=== PATIENT | female | born 1940 | race Caucasian/White ===

== ENCOUNTER 2020-08-01 15:13 | Emergency (ER) | payer MEDICARE, OTHER, BC ==
[~2020-08-01] VITALS: Ht 167.6 cm; Wt 76.5 kg
[2020-08-01] MEDS ORDERED: ATEN50TA2 (15:25)
[2020-08-01] MEDS ORDERED: ONDA-83 (15:25)
[2020-08-01] MEDS ORDERED: LOPI600T PO (15:25)
[2020-08-01] MEDS ORDERED: SIMV40TA20 (15:25)
[2020-08-01] MEDS ORDERED: SERT50TA29 PO (15:25)
[2020-08-01] MEDS ORDERED: ALPR0.25 (15:25)
[2020-08-01] MEDS ORDERED: DONE10TA90 (15:25)
[2020-08-01] MEDS ORDERED: SYNT100T (15:25)
[2020-08-01] MEDS ORDERED: METF-838 (15:25)
[2020-08-01] MEDS ORDERED: FERR325T18 (15:25)
[2020-08-01] MEDS ORDERED: NS 500 ML IV ONE (15:45)
[2020-08-01] MEDS ORDERED: ONDANSETRON 4MG/2ML VIAL IV ONE (15:45)
[2020-08-01 16:00] LABS: BASO % 0.5 % (0.0-1.0); EOS # 0.1 10^3/uL (0.0-0.5); HEMATOCRIT 35.6 % (36.0-47.0); HEMOGLOBIN 11.3 g/dl (12.0-15.5); LYMPH # 1.3 10^3/uL (1.5-5.0); LYMPH % 15.4 % (24.0-44.0); MEAN CORPUSCULAR HGB CONC 31.7 g/dl (32.0-36.5); MEAN CORPUSCULAR VOLUME 78.8 fl (80.0-96.0); MONO # 0.5 10^3/uL (0.0-0.8); MONO % 5.5 % (2.0-8.0); NEUTROPHILS # 6.3 10^3/uL (1.5-8.5); NEUTROPHILS % 77.2 % (36.0-66.0); PLATELET COUNT, AUTOMATED 163 10^3/uL (150-450); RED BLOOD COUNT 4.52 10^6/uL (4.00-5.40); WHITE BLOOD COUNT 8.1 10^3/uL (4.0-10.0)
[2020-08-01 16:27] LABS: ALBUMIN 3.7 GM/DL (3.2-5.2); ALT/SGPT 13 U/L (12-78); BILIRUBIN,DIRECT 0.1 MG/DL (0.0-0.2); BILIRUBIN,TOTAL 0.6 MG/DL (0.2-1.0); BLOOD UREA NITROGEN 13 MG/DL (7-18); CALCIUM LEVEL 9.2 MG/DL (8.8-10.2); CARBON DIOXIDE LEVEL 26 MEQ/L (21-32); CHLORIDE LEVEL 107 MEQ/L (98-107); GLOMERULAR FILTRATION RATE > 60.0 (>39); GLUCOSE, FASTING 119 MG/DL (70-100); LIPASE 366 U/L (73-393); POTASSIUM SERUM 3.8 MEQ/L (3.5-5.1); SODIUM LEVEL 140 MEQ/L (136-145); TOTAL PROTEIN 6.7 GM/DL (6.4-8.2)
[2020-08-01] MEDS ORDERED: ISOVUE-370 76% 100ML VIAL As Ordered ONE (16:35)
--- NOTE | 2020-08-01 17:09 | REP ---
INDICATION: nausea/vomiting for weeks. COMPARISON: None. TECHNIQUE: Helical scanning was acquired and 4 mm axial images are re-formatted. Coronal and sagittal MPR images were generated and reviewed. The contrast enhancement dose is 100 mL of intravenous Isovue 370. FINDINGS: Preliminary digital campus recruiting intern radiograph is unremarkable. Normal bowel gas pattern is seen. On axial CT images, the lung bases are free of infiltrate. No pleural effusion is seen. There is mild splenomegaly. Spleen measures 14.5 cm in greatest transverse dimension. There is mild diffuse fatty infiltration of the liver. The liver is mildly enlarged as well with an 18.4 cm craniocaudal span in the midclavicular line. No focal liver lesion is seen. There are calcified gallstones filling most of the lumen of the gallbladder. The gallbladder is not dilated. No biliary ductal dilation is observed. No abnormality is noted in the pancreas. Normal adrenal glands are seen. The abdominal aorta is normal in caliber but extensively calcified. Kidneys enhance symmetrically. No renal mass, cyst, or calculus is observed. Small and large intestinal bowel loops are normal in the upper abdomen. No abdominal wall defect is seen. Urinary bladder is unremarkable. No uterine abnormality is observed. The rectum is mildly distended with gas at the time of the CT acquisition. There is mild left colonic diverticulosis without CT evidence of diverticulitis. The appendix is difficult to identify and appears to be tiny, and without in the inflammatory changes. No bony destructive lesion. IMPRESSION: Mild hepatosplenomegaly. Fatty infiltration of the liver mild in degree. Cholelithiasis. No biliary ductal dilation. Mild diverticulosis of the left colon. No acute abdominal or pelvic abnormality seen.. <Electronically signed by Sai Velasco > 08/01/20 [id number]
[2020-08-01] MEDS ORDERED: REGL5TAB2 PO (18:25)
[2020-08-01 18:42] VITALS: BP 160/65
--- NOTE | 2020-08-02 14:08 | ED PDOC ---
Post-Departure Follow-Up radiology report faxed to Eva Zepeda MD Aug 02, 2020 14:08
== END 2020-08-01 18:45 | disposition home or self-care (01) ==
LOC: M ED 15:13
DX: K80.20 Calculus of gallbladder without cholecystitis without obstruction (principal); R11.2 Nausea with vomiting, unspecified; R16.2 Hepatomegaly with splenomegaly, not elsewhere classified; K76.0 Fatty (change of) liver, not elsewhere classified; K57.30 Diverticulosis of large intestine without perforation or abscess without bleeding; E11.9 Type 2 diabetes mellitus without complications; I10 Essential (primary) hypertension; E78.5 Hyperlipidemia, unspecified; E03.9 Hypothyroidism, unspecified; F17.200 Nicotine dependence, unspecified, uncomplicated; Z79.890 Hormone replacement therapy; Z79.899 Other long term (current) drug therapy
CPT/HCPCS: 36415; 74177; 80048; 80076; 81001; 83690; 85025; 93041; 96361; 96374; 99285; J2405; Q9967

== ENCOUNTER 2020-10-10 15:11 | Inpatient (IN) | payer MEDICARE, BC, OTHER ==
[~2020-10-10] VITALS: Ht 165.1 cm; Wt 76.8 kg
[~2020-10-10 15:11] MED LIST: ALPR0.25; ATEN50TA2 PO; DONE10TA90 PO; FERR325T18; LOPI600T PO; METF-838 PO; ONDA-83; PREVAGEN PO; REGL5TAB2 PO; SERT50TA29 PO; SIMV40TA20 PO; SYNT100T PO; ZOLO100T PO
[2020-10-10] MEDS ORDERED: DEXTROSE 50% 50 ML SYRINGE IV PRN (17:00)
[2020-10-10] MEDS ORDERED: GLUCOSE 4GM CHEW TABLET PO PRN (17:00)
[2020-10-10] MEDS ORDERED: BISACODYL 10 MG SUPP PR PRN (17:00)
[2020-10-10] MEDS ORDERED: GLUCAGON INJ 1MG VIAL SC PRN (17:00)
[2020-10-10 18:54] VITALS: BP 132/60
[2020-10-10 20:00] VITALS: BP 128/60
[2020-10-10] MEDS: HumaLOG INSULIN (NovoLOG) PER UNIT SC SCH (20:15)
[2020-10-10] MEDS: DONEPEZIL 5 MG TAB PO SCH (20:18)
[2020-10-10] MEDS: SENNA 8.6 MG TAB (SENOKOT) PO SCH (20:18)
[2020-10-10] MEDS: SIMVASTATIN 20 MG TAB PO SCH (20:19)
[2020-10-10] MEDS: DOCUSATE SODIUM 100MG CAPSULE PO SCH (20:19)
[2020-10-10] MEDS: ACETAMINOPHEN 500 MG TAB PO SCH (20:19)
[2020-10-10] MEDS: REMEDY PHYTOPLEX Z-GUARD PASTE 113GM TUBE (FROM STOREROOM PRODUCT) TOP SCH (20:27)
--- NOTE | 2020-10-10 20:59 | HPEPDOC ---
Practice Or Student Teacher Note DATE OF ADMISSION: 10-10-20 DATE OF SERVICE: 10-11-20 TIME OF ADMISSION: Please refer to physician's admission order. SOURCE OF ADMISSION INFORMATION: [facility] record and patient CHIEF COMPLAINT: right pelvic fracture HISTORY OF PRESENT ILLNESS: 79F pmh dementia, DM. HTN, HLD, cholelithiasis, hypothyroidism, who presented to [facility] ED on 10-07-20 with left wrist and right hip pain following a mechanical fall. Imaging revealed "Subtle nondisplaced somewhat comminuted fracture involving the right pubic tubercle/inferior pubic ramus and very subtle incomplete buckle fracture of the mid right inferior pubic ramus" and wrist imaging did not reveal fracture. She was evaluated by orthopedics diagnosed with a wrist contusion an provided with a splint. She had weakness, pain, and notable anemia with difficulty completing her ADLs and ambulating and deemed medically appropriate for discharge to ARU on 10-10-20. REVIEW OF SYSTEMS: The following is a completed review of systems and has been reviewed. Review of systems otherwise unremarkable. PAIN: Patient self reports left wrist pain EYES: [No recent vision changes EARS, NOSE, & THROAT: No throat pain, or dysphagia, or rhinorrhea CARDIOVASCULAR: Denies chest pain or palpitations PULMONARY: Denies shortness of breath GASTROINTESTINAL: Denies constipation/diarrhea GENITOURINARY: denies dysuria MUSCULOSKELETAL: left wrist pain and right pelvic fracture NEUROLOGICAL:+left hand paresthesias HEMATOLOGICAL: denies easy bruising SKIN: denies rash PSYCHIATRIC: Unremarkable All other review of systems found to be negative. PAST MEDICAL HISTORY: as per [facility] PAST SURGICAL HISTORY: tubal ligation ALLERGIES: Please see below. MEDICATIONS: Please see below. FAMILY HISTORY:tubal ligation SOCIAL HISTORY: +smoker, no etoh/illicit drugs DIET: consistent carb PHYSICAL EXAMINATION: VITAL SIGNS: Please see below. GENERAL: Pleasant and cooperative. No acute distress. HEENT: PERRL. Extraocular movements intact. Clear conjunctiva CARDIOVASCULAR: Regular rate and rhythm. No murmurs, rubs, or gallops LUNGS: Clear to auscultation bilaterally. No wheezes. No rhonchi ABDOMEN: Soft, nontender, nondistended. Positive bowel sounds. Normal active bowel sounds NEUROLOGICAL: Alert and oriented times three. Cranial nerves II through XII grossly intact. Sensation grossly intact in all 4limbs, except decreased to light touch left hand D1-D4 EXTREMITIES: 5\\5 strength right l upper extremity 5/5 left elbow flexion/extension, 4/5 wrsit extension/supervisor phosphatic fertilizer/finger abduction (secondary to pain). 4+\\5 strength right lower extremity. left wrist- +Tinel's of median nerve, +TTP 1st CMC joint with mild swelling and ecchymosis of thenar eminence -radial pulse strong, fingers warm and well perfused LABORATORY DATA: Please see below. IMAGING:Imaging documentation personally reviewed by record FUNCTIONAL STATUS: Premorbid: Independent with all activities of daily life as well as mobility On Admission: Min assist for bed mobility, functional transfers, dressing, toileting, bathing, ambulation GOALS: Mod-I bed mobility, functional transfers, dressing, toileting, bathing, ambulation ASSESSMENT:79-year-old F with past medical history of DM, hypothyroidism who presents status post fall with multiple right pubic rami fracture and left wrist contusion PLAN: 1. REhab- PT/OT advance mobility and ADLs, strengthen/stretch/maintain ROM all 4l imbs, balance training 2. Ortho s/p fall with multiple right pubic rami fractures, WBAT -patient also with left wrist contusion with paresthesias consistent with median nerve distribution, concern for possible scaphoid fracture, will order MRI- c/u splint and use of platform walker to offload wrist 3. CArdaic- hx of HTn c/u BP Meds -HLD- c/u statin and Lopid 4. Resp- monitor for infection 5. Neuro- hx of dementia on donepeazil 6. Endo- hx of hypothryoidism c/u synthroid 7. Psych- anxiety/depression c/u zoloft 8. Heme- anemia 9. Pain- tylenol and tramadol prn- lidoderm patch to wrist 10. GI ppx- protonix 11. DVT ppx- lovenox 12. DIspo- tbd POST ADMISSION PHYSICIAN EVALUATION: Medical and functional status: Description of medical status, medical assessment: As above. Rehabilitation diagnosis and current and prior cold morbid medical conditions as above. Risk of complications and plans to mitigate them as above. Description of functional status current status is as above. Prior status as above. Status compared to preadmission: There are no clinically significant differences between the patient's current status and the information described on the preadmission screening document. Treatment plan anticipated: Treatment plan is as described above. Required disciplines including physical therapy, occupational therapy, others as noted above Intensity of services: 3 hours a day, 6 days a week. Special considerations: There are no specific special or safety considerations that would likely preclude immediate implementation of an intensive rehabilitation program or subsequently influence the plan of care ATTESTATION: Considering all the information above, it is my best judgment that this patient requires intensive rehabilitation therapy as described above and an inpatient hospital environment due to the complexity of nursing, medical, and rehabilitation needs required by the patient. Furthermore, this patient can reasonably be expected to participate in an benefit from an inpatient rehabilitation stay with an interdisciplinary team approach to the delivery of rehabilitation care under the direction and supervision of rehabilitation physician PROGNOSIS: Excellent ESTIMATED LENGTH OF STAY:10-12 days. PROJECTED DISCHARGE DESTINATION: [Home with family support and any durable med ical equipment required to increase functional safety and mobility]. TIME SPENT COUNSELING AND COORDINATING INITIAL CARE: Greater than minutes. Vital Signs Vital Sign - Last 24 Hours 10/10/20 18:54 Temp 97.3 Pulse 62 Resp 20 B/P (MAP) 132/60 (84) Pulse Ox 95 O2 Delivery Room Air Laboratory Data Labs 24H Laboratory Tests 2 10/10/20 19:49: Bedside Glucose (Misc Panel) 181H FSBS Laboratory Tests Test 10/10/20 19:49 Range/Units Bedside Glucose (Misc Panel) 181 83-110 MG/DL Home Medications Scheduled Atenolol (Atenolol) 50 Mg Tablet, 50 MG PO DAILY, (Reported) Donepezil HCl (Donepezil HCl) 10 Mg Tablet, 10 MG PO BID, (Reported) Gemfibrozil (Lopid) 600 Mg Tablet, 600 MG PO BID, (Reported) Levothyroxine Sodium (Synthroid) 100 Mcg Tablet, 100 MCG PO DAILY, (Reported) Metformin HCl (Metformin HCl ER) 500 Mg Tab.er.24h, 500 MG PO BID, (Reported) Sertraline Hcl (Zoloft) 100 Mg Tablet, 100 MG PO DAILY, (Reported) Simvastatin (Simvastatin) 40 Mg Tablet, 60 MG PO QHS, (Reported) [Prevagen] , 1 TAB PO DAILY, (Reported) Allergies Coded Allergies: No Known Allergies (Unverified , 08/01/20) A-FIB/CHADSVASC A-FIB History Current/History of A-Fib/PAF?: No Current PO Anticoag Therapy: No CHRIS CARPENTER MD Oct 10, 2020 20:59
[2020-10-10] MEDS ORDERED: ACETAMINOPHEN 500 MG TAB PO SCH (21:00)
[2020-10-11 05:30] VITALS: BP 163/74
[2020-10-11] MEDS: LEVOTHYROXINE 100MCG TABLET (0.1MG) PO SCH (06:05)
[2020-10-11 06:52] LABS: BASO # 0.1 10^3/uL (0.0-0.2); BASO % 0.6 % (0.0-1.0); EOS # 0.1 10^3/uL (0.0-0.5); EOS % 1.2 % (0.0-3.0); HEMOGLOBIN 10.4 g/dl (12.0-15.5); LYMPH # 1.4 10^3/uL (1.5-5.0); LYMPH % 16.6 % (24.0-44.0); MEAN CORPUSCULAR HEMOGLOBIN 25.1 pg (27.0-33.0); MEAN CORPUSCULAR HGB CONC 31.5 g/dl (32.0-36.5); MEAN CORPUSCULAR VOLUME 79.7 fl (80.0-96.0); MONO # 0.5 10^3/uL (0.0-0.8); NEUTROPHILS # 6.1 10^3/uL (1.5-8.5); PLATELET COUNT, AUTOMATED 131 10^3/uL (150-450); RED BLOOD COUNT 4.14 10^6/uL (4.00-5.40); WHITE BLOOD COUNT 8.1 10^3/uL (4.0-10.0)
[2020-10-11 07:23] LABS: ALBUMIN 3.1 GM/DL (3.2-5.2); ALT/SGPT 10 U/L (12-78); BILIRUBIN,TOTAL 0.5 MG/DL (0.2-1.0); BLOOD UREA NITROGEN 16 MG/DL (7-18); CALCIUM LEVEL 8.7 MG/DL (8.8-10.2); CARBON DIOXIDE LEVEL 26 MEQ/L (21-32); CHLORIDE LEVEL 108 MEQ/L (98-107); CREATININE FOR GFR 0.58 MG/DL (0.55-1.30); GLOMERULAR FILTRATION RATE > 60.0 (>39); GLUCOSE, FASTING 162 MG/DL (70-100); POTASSIUM SERUM 4.1 MEQ/L (3.5-5.1); SODIUM LEVEL 141 MEQ/L (136-145); TOTAL PROTEIN 6.4 GM/DL (6.4-8.2)
[2020-10-11] MEDS: traMADol 50 MG TAB PO PRN ×3 (07:39→16:05)
[2020-10-11] MEDS: ACETAMINOPHEN 500 MG TAB PO SCH ×3 (07:39→20:40)
[2020-10-11] MEDS: DONEPEZIL 5 MG TAB PO SCH ×2 (07:40→20:41)
[2020-10-11] MEDS: ENOXAPARIN 40MG/0.4ML SYRINGE (J1650 PER 10MG) SC SCH (07:40)
[2020-10-11] MEDS: atenoloL 50 MG TAB PO SCH (07:40)
[2020-10-11] MEDS: SERTRALINE 100 MG TAB PO SCH (07:40)
[2020-10-11] MEDS: DOCUSATE SODIUM 100MG CAPSULE PO SCH ×2 (07:40→20:41)
[2020-10-11] MEDS: PANTOPRAZOLE 40MG TAB (PROTONIX) PO SCH (07:40)
[2020-10-11] MEDS: HumaLOG INSULIN (NovoLOG) PER UNIT SC SCH ×4 (07:41→20:39)
[2020-10-11] MEDS: REMEDY PHYTOPLEX Z-GUARD PASTE 113GM TUBE (FROM STOREROOM PRODUCT) TOP SCH ×3 (07:41→20:41)
[2020-10-11] MEDS ORDERED: LIDOCAINE 5% (LIDODERM) PATCH TD SCH (09:00)
[2020-10-11 14:00] VITALS: BP 133/60
[2020-10-11 20:00] VITALS: BP 115/57
[2020-10-11] MEDS: SIMVASTATIN 20 MG TAB PO SCH (20:41)
[2020-10-11] MEDS: SENNA 8.6 MG TAB (SENOKOT) PO SCH (20:41)
[2020-10-11] MEDS ORDERED: **NOTE PATIENT COMMENT** MISC XX SCH (21:00)
--- NOTE | 2020-10-11 23:38 | REPVR ---
PROCEDURE INFORMATION: Exam: MR Left Upper Extremity Joint Without Contrast; Wrist Exam date and time: 10/11/2020 10:40 PM Age: 79 years old Clinical indication: Other: Pain; Additional info: No cotnrast- R/O scaphiod fracture TECHNIQUE: Imaging protocol: MR of the Left upper extremity without contrast. Exam focused on the wrist. COMPARISON: CR Wrist, complete 10/07/2020 12:47 PM Study limitations: Some sequences are nondiagnostic secondary to excessive motion artifact. FINDINGS: OSSEOUS There is an acute, complete, essentially nondisplaced, transverse fracture extending obliquely through the mid capitate body. No other acute osseous injury is seen. There are marrow signal changes at the base of the 1st metacarpal and cystic changes within the trapezium and base of the 1st metacarpal, findings consistent with osteoarthritis and reactive marrow signal changes. The scaphoid is intact. The distal radius is intact. LIGAMENTS Evaluation of wrist ligaments is limited by motion artifact. No obvious scapholunate or lunotriquetral intraosseous ligament tear is seen. TFCC The triangular fibrocartilage appears intact. ARTICULATIONS Radiocarpal alignment is anatomic. Alignment of the carpal arcs is preserved. There is no significant distal radioulnar joint effusion. Mild negative ulnar variance incidentally noted. There is small to moderate amount of fluid within the pisiotriquetral recess. Articular cartilage is not well evaluated secondary to artifact but no obvious full-thickness cartilage loss is seen at the radiocarpal articulation. There is a 1st carpometacarpal joint effusion with some surrounding fluid. Partial decompression of the joint cannot be excluded. Adjacent soft tissue ganglion cysts or synovial cysts are noted. SOFT TISSUES There is fluid sensitive signal hyperintensity surrounding the thumb, with heterogeneous signal hyperintensities within the thenar musculature consistent with acute sprain. The median nerve does not appear edematous. TENDONS No acute tendon tear is seen. No tenosynovitis is seen. The extensor carpi ulnaris tendon is not subluxed or dislocated. IMPRESSION: There is an acute essentially nondisplaced fracture through the body of the capitate. No other acute associated osseous injuries are seen. No articular malalignment seen. There is sprain of thenar musculature. Partial decompression of the 1st carpometacarpal joint capsule cannot be excluded. Advanced osteoarthritic changes are seen at the 1st carpometacarpal joint as discussed above. Other findings and significant study limitations discussed above. Electronically signed by: Carlos Toledo On 10/11/2020 23:38:11 PM
[2020-10-12] MEDS: LEVOTHYROXINE 100MCG TABLET (0.1MG) PO SCH (05:18)
[2020-10-12 05:38] VITALS: BP 117/58
[2020-10-12] MEDS: ACETAMINOPHEN 500 MG TAB PO SCH ×3 (08:13→20:57)
[2020-10-12] MEDS: DONEPEZIL 5 MG TAB PO SCH ×2 (08:14→20:57)
[2020-10-12] MEDS: PANTOPRAZOLE 40MG TAB (PROTONIX) PO SCH (08:14)
[2020-10-12] MEDS: ENOXAPARIN 40MG/0.4ML SYRINGE (J1650 PER 10MG) SC SCH (08:14)
[2020-10-12] MEDS: DOCUSATE SODIUM 100MG CAPSULE PO SCH ×2 (08:14→20:56)
[2020-10-12] MEDS: atenoloL 50 MG TAB PO SCH (08:14)
[2020-10-12] MEDS: SERTRALINE 100 MG TAB PO SCH (08:14)
[2020-10-12] MEDS: HumaLOG INSULIN (NovoLOG) PER UNIT SC SCH ×4 (08:15→20:58)
[2020-10-12] MEDS: traMADol 50 MG TAB PO PRN (08:15)
[2020-10-12] MEDS: REMEDY PHYTOPLEX Z-GUARD PASTE 113GM TUBE (FROM STOREROOM PRODUCT) TOP SCH ×3 (09:00→20:59)
[2020-10-12] MEDS: ANUSOL HC CREAM 30GM TOP SCH ×2 (09:25→20:59)
[2020-10-12 13:49] VITALS: BP 119/59
[2020-10-12 20:15] VITALS: BP 138/59
[2020-10-12] MEDS: SENNA 8.6 MG TAB (SENOKOT) PO SCH (20:56)
[2020-10-12] MEDS: SIMVASTATIN 20 MG TAB PO SCH (20:57)
--- NOTE | 2020-10-12 21:23 | IPNPDOC ---
PM&R Progress Note DATE OF SERVICE: Oct 12, 2020 Breaker Machine Tender Progress Note Subjective: Patient reporting her left wrist feels less swollen and painful today. She has a mild of a cough. REVIEW OF SYSTEMS: The following is a completed review of systems and has been reviewed. Review of systems otherwise unremarkable. PAIN: Patient self reports left wrist pain EYES: [No recent vision changes EARS, NOSE, & THROAT: No throat pain, or dysphagia, or rhinorrhea CARDIOVASCULAR: Denies chest pain or palpitations PULMONARY: Denies shortness of breath GASTROINTESTINAL: Denies constipation/diarrhea GENITOURINARY: denies dysuria MUSCULOSKELETAL: left wrist pain and right pelvic fracture NEUROLOGICAL:+left hand paresthesias HEMATOLOGICAL: denies easy bruising SKIN: denies rash PSYCHIATRIC: Unremarkable All other review of systems found to be negative. PHYSICAL EXAMINATION: VITAL SIGNS: Please see below. GENERAL: Pleasant and cooperative. No acute distress. HEENT: PERRL. Extraocular movements intact. Clear conjunctiva CARDIOVASCULAR: Regular rate and rhythm. No murmurs, rubs, or gallops LUNGS: Clear to auscultation bilaterally. No wheezes. No rhonchi ABDOMEN: Soft, nontender, nondistended. Positive bowel sounds. Normal active bowel sounds NEUROLOGICAL: Alert and oriented times three. Cranial nerves II through XII grossly intact. Sensation grossly intact in all 4limbs, except decreased to light touch left hand D1-D4 EXTREMITIES: 5\\5 strength right l upper extremity 5/5 left elbow flexion/extension, 4/5 wrsit extension/landfill gas collection operator/finger abduction (secondary to pain). 4+\\5 strength right lower extremity. left wrist- +Tinel's of median nerve, +TTP 1st CMC joint with mild swelling and ecchymosis of thenar eminence -radial pulse strong, fingers warm and well perfused ASSESSMENT:79-year-old F with past medical history of DM, hypothyroidism who pr esents status post fall with multiple right pubic rami fracture and left wrist contusion PLAN: 1. REhab- PT/OT advance mobility and ADLs, strengthen/stretch/maintain ROM all 4 limbs, balance training 2. Ortho s/p fall with multiple right pubic rami fractures, WBAT -patient also with left wrist contusion with paresthesias consistent with median nerve distribution- MRI showing "acute, complete, essentially nondisplaced, transverse fracture extending obliquely through the mid capitate body" discussed with Dr. 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 CArdaic- hx of HTn c/u BP Meds -HLD- c/u statin and Lopid 4. Resp- monitor for infection- current smoker, will order Combivent 5. Neuro- hx of dementia on donepeazil 6. Endo- hx of hypothyroidism c/u synthroid 7. Psych- anxiety/depression c/u zoloft 8. Heme- anemia 9. Pain- tylenol and tramadol prn- 10. GI ppx- protonix 11. DVT ppx- lovenox 12. DIspo- tbd Allergies Coded Allergies: No Known Allergies (Unverified , 08/01/20) Vital Signs Vital Signs Date Time Temp Pulse Resp B/P (MAP) Pulse Ox O2 Delivery O2 Flow Rate FiO2 10/12/20 13:49 98.1 92 20 119/59 (79) 99 Room Air Laboratory Data Labs 24H Laboratory Tests 2 10/12/20 05:16: Bedside Glucose (Misc Panel) 148H 10/12/20 11:30: Bedside Glucose (Misc Panel) 224H 10/12/20 16:43: Bedside Glucose (Misc Panel) 101 10/12/20 20:32: Bedside Glucose (Misc Panel) 189H Current Medications Current Medications Current Medications Medications (Trade) Dose Ordered Sig/Nandini Route PRN Reason Start Time Stop Time Status Last Admin Dose Admin Acetaminophen (Tylenol Tab) 1,000 mg TID PO 10/10/20 21:00 10/10/20 18:51 DC Acetaminophen (Tylenol Tab) 1,000 mg TID PO 10/10/20 21:00 10/12/20 20:57 Atenolol (Tenormin) 50 mg DAILY PO 10/11/20 09:00 10/11/20 07:40 Bisacodyl (Dulcolax Suppository) 10 mg DAILYPRN PRN NC CONSTIPATION 10/10/20 17:00 Dextrose (Dextrose 50%) 25 ml ASDIRECTED PRN IV SEE LABEL COMMENTS 10/10/20 17:00 Docusate Sodium (Colace) 100 mg BID PO 10/10/20 21:00 10/12/20 20:56 Donepezil HCl (AriCEPT) 10 mg BID PO 10/10/20 21:00 10/12/20 20:57 Enoxaparin Sodium (Lovenox) 40 mg DAILY SC 10/11/20 09:00 10/12/20 08:14 Gemfibrozil (Lopid) 600 mg BID@0730,1730 PO 10/10/20 17:30 10/12/20 16:49 Glucagon (Glucagon) 1 mg ASDIRECTED PRN SC SEE LABEL COMMENTS 10/10/20 17:00 Glucose (Glucose) 16 GM ASDIRECTED PRN PO SEE LABEL COMMENTS 10/10/20 17:00 Hydrocortisone (Proctosol Hc) left thenar eimine... BID TOP 10/12/20 09:00 10/12/20 20:59 Insulin Human Lispro (HumaLOG INSULIN) SEE PROTOCOL TABLE AC SC 10/11/20 07:30 10/12/20 12:40 Insulin Human Lispro (HumaLOG INSULIN) SEE PROTOCOL TABLE QHS SC 10/10/20 21:00 Levothyroxine Sodium (Synthroid) 100 mcg DAILY@06 PO 10/11/20 06:00 10/12/20 05:18 Lidocaine (Lidoderm Patch) 1 patch DAILY TD 10/11/20 09:00 10/12/20 07:56 DC 10/11/20 13:21 Non-Formulary Medication ( See Comment Field Below ) REMOVE LIDODERM PATCH DAILY@ XX 10/11/20 21:00 10/12/20 07:56 DC 10/11/20 20:42 Pantoprazole Sodium (Protonix) 40 mg DAILY PO 10/11/20 09:00 10/12/20 08:14 Senna (Senokot) 1 tab QHS PO 10/10/20 21:00 10/12/20 20:56 Sertraline HCl (Zoloft) 100 mg DAILY PO 10/11/20 09:00 10/12/20 08:14 Simvastatin (Zocor) 60 mg QHS PO 10/10/20 21:00 10/12/20 20:57 Tramadol HCl (Ultram) 50 mg Q4HP PRN PO MODERATE PAIN (PS 5-7) 10/10/20 17:00 10/12/20 08:15 CHRIS CARPENTER MD Oct 12, 2020 21:23
[2020-10-13] MEDS: LEVOTHYROXINE 100MCG TABLET (0.1MG) PO SCH (05:37)
[2020-10-13 05:54] VITALS: BP 151/74
[2020-10-13] MEDS: SERTRALINE 100 MG TAB PO SCH (07:59)
[2020-10-13] MEDS: PANTOPRAZOLE 40MG TAB (PROTONIX) PO SCH (07:59)
[2020-10-13] MEDS: DOCUSATE SODIUM 100MG CAPSULE PO SCH ×2 (08:00→20:54)
[2020-10-13] MEDS: COMBIVENT RESPIMAT 100-20MCG INHALER 4GM INH SCH (08:00)
[2020-10-13] MEDS: ACETAMINOPHEN 500 MG TAB PO SCH ×3 (08:00→20:55)
[2020-10-13] MEDS: atenoloL 50 MG TAB PO SCH (08:00)
[2020-10-13] MEDS: DONEPEZIL 5 MG TAB PO SCH ×2 (08:00→20:55)
[2020-10-13] MEDS: REMEDY PHYTOPLEX Z-GUARD PASTE 113GM TUBE (FROM STOREROOM PRODUCT) TOP SCH ×3 (08:01→20:57)
[2020-10-13] MEDS: HumaLOG INSULIN (NovoLOG) PER UNIT SC SCH ×4 (08:01→20:55)
[2020-10-13] MEDS: ENOXAPARIN 40MG/0.4ML SYRINGE (J1650 PER 10MG) SC SCH (08:01)
[2020-10-13] MEDS: ANUSOL HC CREAM 30GM TOP SCH ×2 (08:02→20:56)
[2020-10-13 14:00] VITALS: BP 126/60
[2020-10-13 20:15] VITALS: BP 120/57
[2020-10-13] MEDS: SENNA 8.6 MG TAB (SENOKOT) PO SCH (20:54)
[2020-10-13] MEDS: SIMVASTATIN 20 MG TAB PO SCH (20:55)
[2020-10-14 05:27] VITALS: BP 147/65
[2020-10-14] MEDS: LEVOTHYROXINE 100MCG TABLET (0.1MG) PO SCH (05:36)
[2020-10-14] MEDS: HumaLOG INSULIN (NovoLOG) PER UNIT SC SCH ×4 (07:30→20:31)
[2020-10-14] MEDS: COMBIVENT RESPIMAT 100-20MCG INHALER 4GM INH SCH (07:59)
[2020-10-14] MEDS: REMEDY PHYTOPLEX Z-GUARD PASTE 113GM TUBE (FROM STOREROOM PRODUCT) TOP SCH ×3 (09:00→20:32)
[2020-10-14] MEDS: DOCUSATE SODIUM 100MG CAPSULE PO SCH ×2 (10:04→20:31)
[2020-10-14] MEDS: PANTOPRAZOLE 40MG TAB (PROTONIX) PO SCH (10:04)
[2020-10-14] MEDS: DONEPEZIL 5 MG TAB PO SCH ×2 (10:04→20:31)
[2020-10-14] MEDS: atenoloL 50 MG TAB PO SCH (10:05)
[2020-10-14] MEDS: ACETAMINOPHEN 500 MG TAB PO SCH ×3 (10:05→20:31)
[2020-10-14] MEDS: SERTRALINE 100 MG TAB PO SCH (10:06)
[2020-10-14] MEDS: ANUSOL HC CREAM 30GM TOP SCH ×2 (10:06→20:32)
[2020-10-14] MEDS: ENOXAPARIN 40MG/0.4ML SYRINGE (J1650 PER 10MG) SC SCH (10:06)
[2020-10-14 14:00] VITALS: BP 150/67
[2020-10-14 20:00] VITALS: BP 131/87
[2020-10-14] MEDS: SENNA 8.6 MG TAB (SENOKOT) PO SCH (20:31)
[2020-10-14] MEDS: SIMVASTATIN 20 MG TAB PO SCH (20:31)
[2020-10-15] MEDS: LEVOTHYROXINE 100MCG TABLET (0.1MG) PO SCH (05:41)
[2020-10-15 06:00] VITALS: BP 162/58
[2020-10-15 07:35] LABS: BASO # 0.1 10^3/uL (0.0-0.2); EOS # 0.1 10^3/uL (0.0-0.5); HEMATOCRIT 33.6 % (36.0-47.0); HEMOGLOBIN 10.6 g/dl (12.0-15.5); LYMPH # 1.5 10^3/uL (1.5-5.0); LYMPH % 24.3 % (24.0-44.0); MEAN CORPUSCULAR HEMOGLOBIN 25.2 pg (27.0-33.0); MEAN CORPUSCULAR HGB CONC 31.5 g/dl (32.0-36.5); MONO # 0.4 10^3/uL (0.0-0.8); NEUTROPHILS % 65.7 % (36.0-66.0); PLATELET COUNT, AUTOMATED 164 10^3/uL (150-450); WHITE BLOOD COUNT 6.1 10^3/uL (4.0-10.0)
[2020-10-15 07:55] LABS: BLOOD UREA NITROGEN 23 MG/DL (7-18); CALCIUM LEVEL 9.6 MG/DL (8.8-10.2); CARBON DIOXIDE LEVEL 29 MEQ/L (21-32); CHLORIDE LEVEL 108 MEQ/L (98-107); CREATININE FOR GFR 0.62 MG/DL (0.55-1.30); GLOMERULAR FILTRATION RATE > 60.0 (>39); GLUCOSE, FASTING 147 MG/DL (70-100); POTASSIUM SERUM 4.2 MEQ/L (3.5-5.1); SODIUM LEVEL 142 MEQ/L (136-145)
[2020-10-15] MEDS: COMBIVENT RESPIMAT 100-20MCG INHALER 4GM INH SCH ×4 (08:00→20:00)
[2020-10-15 08:50] VITALS: BP 132/63
[2020-10-15] MEDS: REMEDY PHYTOPLEX Z-GUARD PASTE 113GM TUBE (FROM STOREROOM PRODUCT) TOP SCH ×3 (09:00→21:16)
[2020-10-15] MEDS: atenoloL 50 MG TAB PO SCH (09:00)
[2020-10-15] MEDS: SERTRALINE 100 MG TAB PO SCH (09:02)
[2020-10-15] MEDS: ENOXAPARIN 40MG/0.4ML SYRINGE (J1650 PER 10MG) SC SCH (09:02)
[2020-10-15] MEDS: DOCUSATE SODIUM 100MG CAPSULE PO SCH ×2 (09:02→21:14)
[2020-10-15] MEDS: DONEPEZIL 5 MG TAB PO SCH ×2 (09:04→21:15)
[2020-10-15] MEDS: PANTOPRAZOLE 40MG TAB (PROTONIX) PO SCH (09:04)
[2020-10-15] MEDS: ACETAMINOPHEN 500 MG TAB PO SCH ×3 (09:04→21:15)
[2020-10-15] MEDS: HumaLOG INSULIN (NovoLOG) PER UNIT SC SCH ×2 (09:05→13:04)
[2020-10-15] MEDS: VITAMIN D 1,000 INTERNATIONAL UNITS TABLET PO SCH (12:05)
[2020-10-15] MEDS: ANUSOL HC CREAM 30GM TOP SCH ×2 (12:05→21:15)
[2020-10-15 14:00] VITALS: BP 129/58
--- NOTE | 2020-10-15 14:21 | IPNPDOC ---
PM&R Progress Note DATE OF SERVICE: October 15, 2020 Stem Crusher Progress Note Subjective: Patient reporting she is feeling well today and that the tingling in her left hand is starting to improve. REVIEW OF SYSTEMS: The following is a completed review of systems and has been reviewed. Review of systems otherwise unremarkable. PAIN: Patient self reports left wrist pain EYES: No recent vision changes EARS, NOSE, & THROAT: No throat pain, or dysphagia, or rhinorrhea CARDIOVASCULAR: Denies chest pain or palpitations PULMONARY: Denies shortness of breath GASTROINTESTINAL: Denies constipation/diarrhea GENITOURINARY: denies dysuria MUSCULOSKELETAL: left wrist pain and right pelvic fracture NEUROLOGICAL:+left hand paresthesias HEMATOLOGICAL: denies easy bruising SKIN: denies rash PSYCHIATRIC: Unremarkable All other review of systems found to be negative. PHYSICAL EXAMINATION: VITAL SIGNS: Please see below. GENERAL: Pleasant and cooperative. No acute distress. HEENT: PERRL. Extraocular movements intact. Clear conjunctiva CARDIOVASCULAR: Regular rate and rhythm. No murmurs, rubs, or gallops LUNGS: Clear to auscultation bilaterally. No wheezes. No rhonchi ABDOMEN: Soft, nontender, nondistended. Positive bowel sounds. Normal active bowel sounds NEUROLOGICAL: Alert and oriented times three. Cranial nerves II through XII grossly intact. Sensation grossly intact in all 4limbs, except decreased to light touch left hand D1-D4 EXTREMITIES: 5\\5 strength right l upper extremity 5/5 left elbow flexion/extension, 4/5 wrsit extension/vice president global digital marketing/finger abduction (secondary to pain). 4+\\5 strength right lower extremity. left wrist- +Tinel's of median nerve, +TTP 1st CMC joint, no swelling, minimal ecchymosis of thenar eminence -radial pulse strong, fingers warm and well perfused ASSESSMENT:79-year-old F with past medical history of DM, hypothyroidism who presents status post fall with multiple right pubic rami fracture and left wrist contusion PLAN: 1. REhab- PT/OT advance mobility and ADLs, strengthen/stretch/maintain ROM all 4 limbs, balance training 2. Ortho s/p fall with multiple right pubic rami fractures, WBAT -patient also with left wrist contusion with paresthesias consistent with median nerve distribution- MRI showing "acute, complete, essentially nondisplaced, transverse fracture extending obliquely through the mid capitate body" discussed with Dr. 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 CArdaic- hx of HTn c/u BP Meds -HLD- c/u statin and Lopid 4. Resp- monitor for infection- current smoker, c/u Combivent 5. Neuro- hx of dementia on donepezil 6. Endo- hx of hypothyroidism c/u synthroid 7. Psych- anxiety/depression c/u zoloft 8. Heme- anemia 9. Pain- tylenol and tramadol prn- -lidoderm path to right axilla 10. GI ppx- protonix 11. DVT ppx- lovenox 12. DIspo- TBD Allergies Coded Allergies: No Known Allergies (Unverified , 08/01/20) Vital Signs Vital Signs Date Time Temp Pulse Resp B/P (MAP) Pulse Ox O2 Delivery O2 Flow Rate FiO2 10/15/20 09:00 54 132/63 10/15/20 06:00 96.6 18 98 Room Air Laboratory Data CBC/BMP Laboratory Tests 10/15/20 06:57 Labs 24H Laboratory Tests 2 10/14/20 16:26: Bedside Glucose (Misc Panel) 172H 10/14/20 20:31: Bedside Glucose (Misc Panel) 149H 10/15/20 05:10: Bedside Glucose (Misc Panel) 173H 10/15/20 06:57: Immature Granulocyte % (Auto) 1.0, Neutrophils (%) (Auto) 65.7, Lymphocytes (%) (Auto) 24.3, Monocytes (%) (Auto) 6.0, Eosinophils (%) (Auto) 2.0, Basophils (%) (Auto) 1.0, Neutrophils # (Auto) 4.0, Lymphocytes # (Auto) 1.5, Monocytes # (Auto) 0.4, Eosinophils # (Auto) 0.1, Basophils # (Auto) 0.1, Nucleated Red Blood Cells % (auto) 0.0, Anion Gap 5L, Glomerular Filtration Rate > 60.0, Calcium Level 9.6 10/15/20 11:21: Bedside Glucose (Misc Panel) 157H Current Medications Current Medications Current Medications Medications (Trade) Dose Ordered Sig/Nandini Route PRN Reason Start Time Stop Time Status Last Admin Dose Admin Acetaminophen (Tylenol Tab) 1,000 mg TID PO 10/10/20 21:00 10/10/20 18:51 DC Acetaminophen (Tylenol Tab) 1,000 mg TID PO 10/10/20 21:00 10/15/20 09:04 Albuterol/ Ipratropium (Combivent Respimat 100-20mcg) 1 puff RTID INH 10/13/20 08:00 10/14/20 07:59 Atenolol (Tenormin) 50 mg DAILY PO 10/11/20 09:00 10/14/20 10:05 Bisacodyl (Dulcolax Suppository) 10 mg DAILYPRN PRN NE CONSTIPATION 10/10/20 17:00 Dextrose (Dextrose 50%) 25 ml ASDIRECTED PRN IV SEE LABEL COMMENTS 10/10/20 17:00 Docusate Sodium (Colace) 100 mg BID PO 10/10/20 21:00 10/15/20 09:02 Donepezil HCl (AriCEPT) 10 mg BID PO 10/10/20 21:00 10/15/20 09:04 Enoxaparin Sodium (Lovenox) 40 mg DAILY SC 10/11/20 09:00 10/15/20 09:02 Gemfibrozil (Lopid) 600 mg BID@0730,1730 PO 10/10/20 17:30 10/15/20 09:08 Glucagon (Glucagon) 1 mg ASDIRECTED PRN SC SEE LABEL COMMENTS 10/10/20 17:00 Glucose (Glucose) 16 GM ASDIRECTED PRN PO SEE LABEL COMMENTS 10/10/20 17:00 Hydrocortisone (Proctosol Hc) left thenar eimine... BID TOP 10/12/20 09:00 10/15/20 12:05 Insulin Human Lispro (HumaLOG INSULIN) SEE PROTOCOL TABLE AC SC 10/11/20 07:30 10/13/20 12:44 Insulin Human Lispro (HumaLOG INSULIN) SEE PROTOCOL TABLE QHS SC 10/10/20 21:00 Levothyroxine Sodium (Synthroid) 100 mcg DAILY@06 PO 10/11/20 06:00 10/15/20 05:41 Lidocaine (Lidoderm Patch) 1 patch DAILY TD 10/11/20 09:00 10/12/20 07:56 DC 10/11/20 13:21 Non-Formulary Medication ( See Comment Field Below ) REMOVE LIDODERM PATCH DAILY@21 XX 10/11/20 21:00 10/12/20 07:56 DC 10/11/20 20:42 Pantoprazole Sodium (Protonix) 40 mg DAILY PO 10/11/20 09:00 10/15/20 09:04 Senna (Senokot) 1 tab QHS PO 10/10/20 21:00 10/14/20 20:31 Sertraline HCl (Zoloft) 100 mg DAILY PO 10/11/20 09:00 10/15/20 09:02 Simvastatin (Zocor) 60 mg QHS PO 10/10/20 21:00 10/14/20 20:31 Tramadol HCl (Ultram) 50 mg Q4HP PRN PO MODERATE PAIN (PS 5-7) 10/10/20 17:00 10/12/20 08:15 Vitamin D (Vitamin D) 5,000 units DAILY PO 10/15/20 11:25 10/15/20 12:05 CHRIS CARPENTER MD October 15, 2020 14:21
[2020-10-15 20:00] VITALS: BP 135/60
[2020-10-15] MEDS: SENNA 8.6 MG TAB (SENOKOT) PO SCH (21:14)
[2020-10-15] MEDS: SIMVASTATIN 20 MG TAB PO SCH (21:14)
[2020-10-16] MEDS: traMADol 50 MG TAB PO PRN (05:23)
[2020-10-16] MEDS: LEVOTHYROXINE 100MCG TABLET (0.1MG) PO SCH (05:23)
[2020-10-16 05:41] VITALS: BP 129/68
[2020-10-16] MEDS: COMBIVENT RESPIMAT 100-20MCG INHALER 4GM INH SCH ×3 (08:00→20:20)
[2020-10-16] MEDS: ENOXAPARIN 40MG/0.4ML SYRINGE (J1650 PER 10MG) SC SCH (08:10)
[2020-10-16] MEDS: SERTRALINE 100 MG TAB PO SCH (08:11)
[2020-10-16] MEDS: PANTOPRAZOLE 40MG TAB (PROTONIX) PO SCH (08:11)
[2020-10-16] MEDS: DOCUSATE SODIUM 100MG CAPSULE PO SCH ×2 (08:11→20:37)
[2020-10-16] MEDS: DONEPEZIL 5 MG TAB PO SCH ×2 (08:11→20:36)
[2020-10-16] MEDS: VITAMIN D 1,000 INTERNATIONAL UNITS TABLET PO SCH (08:12)
[2020-10-16] MEDS: ACETAMINOPHEN 500 MG TAB PO SCH ×3 (08:13→20:37)
[2020-10-16] MEDS: LIDOCAINE 5% (LIDODERM) PATCH TD SCH (08:14)
[2020-10-16 08:30] VITALS: BP 155/70
[2020-10-16] MEDS: atenoloL 50 MG TAB PO SCH (08:41)
[2020-10-16] MEDS: REMEDY PHYTOPLEX Z-GUARD PASTE 113GM TUBE (FROM STOREROOM PRODUCT) TOP SCH ×3 (09:00→20:38)
[2020-10-16] MEDS: ANUSOL HC CREAM 30GM TOP SCH ×2 (09:21→20:38)
[2020-10-16 14:00] VITALS: BP 138/62
[2020-10-16] MEDS: metFORMIN XR 500MG TAB *GLUCOPHAGE XR PO SCH (17:00)
[2020-10-16 20:00] VITALS: BP 124/60
[2020-10-16] MEDS: SENNA 8.6 MG TAB (SENOKOT) PO SCH (20:37)
[2020-10-16] MEDS: SIMVASTATIN 20 MG TAB PO SCH (20:37)
[2020-10-16] MEDS: **NOTE PATIENT COMMENT** MISC XX SCH (20:38)
[2020-10-17] MEDS: LEVOTHYROXINE 100MCG TABLET (0.1MG) PO SCH (05:28)
[2020-10-17 05:43] VITALS: BP 140/64
[2020-10-17 06:58] LABS: BASO # 0.1 10^3/uL (0.0-0.2); BASO % 0.8 % (0.0-1.0); EOS # 0.2 10^3/uL (0.0-0.5); EOS % 2.5 % (0.0-3.0); HEMATOCRIT 31.7 % (36.0-47.0); HEMOGLOBIN 9.9 g/dl (12.0-15.5); LYMPH # 1.8 10^3/uL (1.5-5.0); LYMPH % 24.5 % (24.0-44.0); MEAN CORPUSCULAR HGB CONC 31.2 g/dl (32.0-36.5); MEAN CORPUSCULAR VOLUME 80.1 fl (80.0-96.0); MONO # 0.5 10^3/uL (0.0-0.8); NEUTROPHILS # 4.6 10^3/uL (1.5-8.5); NEUTROPHILS % 63.5 % (36.0-66.0); PLATELET COUNT, AUTOMATED 191 10^3/uL (150-450); RED BLOOD COUNT 3.96 10^6/uL (4.00-5.40); WHITE BLOOD COUNT 7.2 10^3/uL (4.0-10.0)
[2020-10-17 07:23] LABS: BLOOD UREA NITROGEN 22 MG/DL (7-18); CALCIUM LEVEL 9.3 MG/DL (8.8-10.2); CARBON DIOXIDE LEVEL 27 MEQ/L (21-32); CHLORIDE LEVEL 109 MEQ/L (98-107); CREATININE FOR GFR 0.72 MG/DL (0.55-1.30); GLOMERULAR FILTRATION RATE > 60.0 (>39); GLUCOSE, FASTING 144 MG/DL (70-100); POTASSIUM SERUM 3.9 MEQ/L (3.5-5.1); SODIUM LEVEL 142 MEQ/L (136-145)
[2020-10-17] MEDS: COMBIVENT RESPIMAT 100-20MCG INHALER 4GM INH SCH ×3 (07:35→20:00)
[2020-10-17] MEDS: PANTOPRAZOLE 40MG TAB (PROTONIX) PO SCH (07:41)
[2020-10-17] MEDS: DONEPEZIL 5 MG TAB PO SCH ×2 (07:41→21:34)
[2020-10-17] MEDS: ACETAMINOPHEN 500 MG TAB PO SCH ×3 (07:42→21:33)
[2020-10-17] MEDS: VITAMIN D 1,000 INTERNATIONAL UNITS TABLET PO SCH (07:42)
[2020-10-17] MEDS: SERTRALINE 100 MG TAB PO SCH (07:42)
[2020-10-17] MEDS: ENOXAPARIN 40MG/0.4ML SYRINGE (J1650 PER 10MG) SC SCH (07:43)
[2020-10-17] MEDS: DOCUSATE SODIUM 100MG CAPSULE PO SCH ×2 (07:43→21:00)
[2020-10-17] MEDS: atenoloL 50 MG TAB PO SCH (07:43)
[2020-10-17] MEDS: LIDOCAINE 5% (LIDODERM) PATCH TD SCH (07:44)
[2020-10-17] MEDS: ANUSOL HC CREAM 30GM TOP SCH ×2 (07:45→21:36)
[2020-10-17] MEDS: REMEDY PHYTOPLEX Z-GUARD PASTE 113GM TUBE (FROM STOREROOM PRODUCT) TOP SCH ×3 (07:45→21:36)
[2020-10-17 14:00] VITALS: BP 120/58
--- NOTE | 2020-10-17 14:23 | IPNPDOC ---
Text Note Date of Service The patient was seen on 10/17/20. NOTE Subjective: No any acute events overnight. Patient denies fever, chills, nausea, vomiting or dysuria Objective: GENERAL APPEARANCE: NAD HEENT: no scleral icterus, no JVD, EOMI CARDIOVASCULAR: S1S2 LUNGS: CTA ABDOMEN: soft & not tender w palpitation, tenderness to palpation over right pubis rami MUSCULOSKELETAL: no cyanosis, no swelling, left hand covered with the splint INTEGUMENT: no generalized pallor NEUROLOGICAL: cranial nerve function from 2-12 intact intact, follows commands, speech not dysarthric Assessment and plan Patient is 79 years old female with past medical history of dementia, type 2 diabetes presented hospital after mechanical fall. Patient was found to have nondisplaced fracture of the right pubic tubercle/inferior pubic ramus and buckle fracture of the mid right inferior pubic ramus Right pubis ramus fracture Continue PT/OT Type 2 diabetes Insulin sliding scale Diabetes diet Hypertension Continue home cardioprotective medication Hypothyroidism Continue levothyroxine Dyslipidemia Continue home meds Dementia Continue Donepezil Bradycardia I decreased her dose of atenolol to 25 mg Normocytic anemia Will check iron panel B12, folate, stool for occult blood VS,Fishbone, I+O VS, Fishbone, I+O Laboratory Tests 10/17/20 06:38 Vital Signs Date Time Temp Pulse Resp B/P (MAP) Pulse Ox O2 Delivery O2 Flow Rate FiO2 10/17/20 07:43 62 137/69 10/17/20 05:43 96.5 17 98 Room Air I&O- Last 24 Hours up to 6 AM 10/17/20 06:00 Intake Total 1200 ml Balance 1200 ml KHANG VASQUEZ DO October 17, 2020 14:23
[2020-10-17 15:55] LABS: PERCENT SATURATION 13.1 % (13.2-45.0)
[2020-10-17 16:05] LABS: FOLATE 9.4 NG/ML (>5.4)
[2020-10-17] MEDS: metFORMIN XR 500MG TAB *GLUCOPHAGE XR PO SCH (17:39)
[2020-10-17 20:15] VITALS: BP 131/60
--- NOTE | 2020-10-17 20:59 | IPNPDOC ---
PM&R Progress Note DATE OF SERVICE: October 17, 2020 [employer] Progress Note Subjective: Patient reporting the pain in her armpit feels better with the lidoderm patch. REVIEW OF SYSTEMS: The following is a completed review of systems and has been reviewed. Review of systems otherwise unremarkable. PAIN: Patient self reports left wrist pain EYES: No recent vision changes EARS, NOSE, & THROAT: No throat pain, or dysphagia, or rhinorrhea CARDIOVASCULAR: Denies chest pain or palpitations PULMONARY: Denies shortness of breath GASTROINTESTINAL: Denies constipation/diarrhea GENITOURINARY: denies dysuria MUSCULOSKELETAL: left wrist pain and right pelvic fracture NEUROLOGICAL:+left hand paresthesias HEMATOLOGICAL: denies easy bruising SKIN: denies rash PSYCHIATRIC: Unremarkable All other review of systems found to be negative. PHYSICAL EXAMINATION: VITAL SIGNS: Please see below. GENERAL: Pleasant and cooperative. No acute distress. HEENT: PERRL. Extraocular movements intact. Clear conjunctiva CARDIOVASCULAR: Regular rate and rhythm. No murmurs, rubs, or gallops LUNGS: Clear to auscultation bilaterally. No wheezes. No rhonchi ABDOMEN: Soft, nontender, nondistended. Positive bowel sounds. Normal active bowel sounds NEUROLOGICAL: Alert and oriented times three. Cranial nerves II through XII grossly intact. Sensation grossly intact in all 4limbs, except decreased to light touch left hand D1-D4 (improving) EXTREMITIES: 5\\5 strength right l upper extremity 5/5 left elbow flexion/extension, 4/5 wrsit extension/plate sensitizer/finger abduction (secondary to pain). 4+\\5 strength right lower extremity. right axilla- no lymphadenopathy or mass left wrist- +Tinel's of median nerve, +TTP 1st CMC joint, no swelling, minimal ecchymosis of thenar eminence -radial pulse strong, fingers warm and well perfused ASSESSMENT:79-year-old F with past medical history of DM, hypothyroidism who presents status post fall with multiple right pubic rami fracture and left wrist contusion PLAN: 1. REhab- PT/OT advance mobility and ADLs, strengthen/stretch/maintain ROM all 4 limbs, balance training 2. Ortho s/p fall with multiple right pubic rami fractures, WBAT -patient also with left wrist contusion with paresthesias consistent with median nerve distribution- MRI showing "acute, complete, essentially nondisplaced, transverse fracture extending obliquely through the mid capitate body" discussed with Dr. 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 CArdaic- hx of HTn c/u BP Meds -HLD- c/u statin and Lopid 4. Resp- monitor for infection- current smoker, c/u Combivent 5. Neuro- hx of dementia on donepezil 6. Endo- hx of hypothyroidism c/u synthroid 7. Psych- anxiety/depression c/u zoloft 8. Heme- anemia 9. Pain- tylenol and tramadol prn- -lidoderm path to right axilla- pectoral muscle strain- improving 10. GI ppx- protonix 11. DVT ppx- lovenox 12. DIspo- TBD Allergies Coded Allergies: No Known Allergies (Unverified , 08/01/20) Vital Signs Vital Signs Date Time Temp Pulse Resp B/P (MAP) Pulse Ox O2 Delivery O2 Flow Rate FiO2 10/17/20 20:15 97.7 60 18 131/60 (83) 97 Room Air Laboratory Data CBC/BMP Laboratory Tests 10/17/20 06:38 Labs 24H Laboratory Tests 2 10/17/20 05:17: Bedside Glucose (Misc Panel) 158H 10/17/20 06:38: Immature Granulocyte % (Auto) 1.7, Neutrophils (%) (Auto) 63.5, Lymphocytes (%) (Auto) 24.5, Monocytes (%) (Auto) 7.0, Eosinophils (%) (Auto) 2.5, Basophils (%) (Auto) 0.8, Neutrophils # (Auto) 4.6, Lymphocytes # (Auto) 1.8, Monocytes # (Auto) 0.5, Eosinophils # (Auto) 0.2, Basophils # (Auto) 0.1, Nucleated Red Blood Cells % (auto) 0.0, Anion Gap 6L, Glomerular Filtration Rate > 60.0, C alcium Level 9.3 10/17/20 15:13: Iron Level 51, Total Iron Binding Capacity 390, Transferrin % Saturation 13.1L, Vitamin B12 Level 296, Folate 9.4 Current Medications Current Medications Current Medications Medications (Trade) Dose Ordered Sig/Nandini Route PRN Reason Start Time Stop Time Status Last Admin Dose Admin Acetaminophen (Tylenol Tab) 1,000 mg TID PO 10/10/20 21:00 10/10/20 18:51 DC Acetaminophen (Tylenol Tab) 1,000 mg TID PO 10/10/20 21:00 10/17/20 17:39 Albuterol/ Ipratropium (Combivent Respimat 100-20mcg) 1 puff RTID INH 10/13/20 08:00 10/17/20 13:34 Atenolol (Tenormin) 25 mg DAILY PO 10/18/20 09:00 Atenolol (Tenormin) 50 mg DAILY PO 10/11/20 09:00 10/17/20 14:25 DC 10/17/20 07:43 Bisacodyl (Dulcolax Suppository) 10 mg DAILYPRN PRN HI CONSTIPATION 10/10/20 17:00 Dextrose (Dextrose 50%) 25 ml ASDIRECTED PRN IV SEE LABEL COMMENTS 10/10/20 17:00 Docusate Sodium (Colace) 100 mg BID PO 10/10/20 21:00 10/16/20 20:37 Donepezil HCl (AriCEPT) 10 mg BID PO 10/10/20 21:00 10/17/20 07:41 Enoxaparin Sodium (Lovenox) 40 mg DAILY SC 10/11/20 09:00 10/17/20 07:43 Gemfibrozil (Lopid) 600 mg BID@0730,1730 PO 10/10/20 17:30 10/17/20 17:39 Glucagon (Glucagon) 1 mg ASDIRECTED PRN SC SEE LABEL COMMENTS 10/10/20 17:00 Glucose (Glucose) 16 GM ASDIRECTED PRN PO SEE LABEL COMMENTS 10/10/20 17:00 Hydrocortisone (Proctosol Hc) left thenar eimine... BID TOP 10/12/20 09:00 10/17/20 07:45 Insulin Human Lispro (HumaLOG INSULIN) SEE PROTOCOL TABLE AC SC 10/11/20 07:30 10/15/20 16:08 DC 10/13/20 12:44 Insulin Human Lispro (HumaLOG INSULIN) SEE PROTOCOL TABLE QHS SC 10/10/20 21:00 10/15/20 16:08 DC Levothyroxine Sodium (Synthroid) 100 mcg DAILY@06 PO 10/11/20 06:00 10/17/20 05:28 Lidocaine (Lidoderm Patch) 1 patch DAILY TD 10/11/20 09:00 10/12/20 07:56 DC 10/11/20 13:21 Lidocaine (Lidoderm Patch) 1 patch DAILY TD 10/16/20 09:00 10/17/20 07:44 Metformin HCl (Glucophage Xr) 500 mg DAILY@18 PO 10/16/20 18:00 10/17/20 17:39 Non-Formulary Medication ( See Comment Field Below ) REMOVE LIDODERM PATCH DAILY@21 XX 10/11/20 21:00 10/12/20 07:56 DC 10/11/20 20:42 Non-Formulary Medication ( See Comment Field Below ) REMOVE LIDODERM PATCH DAILY@21 XX 10/16/20 21:00 10/16/20 20:38 Pantoprazole Sodium (Protonix) 40 mg DAILY PO 10/11/20 09:00 10/17/20 07:41 Senna (Senokot) 1 tab QHS PO 10/10/20 21:00 10/16/20 20:37 Sertraline HCl (Zoloft) 100 mg DAILY PO 10/11/20 09:00 10/17/20 07:42 Simvastatin (Zocor) 60 mg QHS PO 10/10/20 21:00 10/16/20 20:37 Tramadol HCl (Ultram) 50 mg Q4HP PRN PO MODERATE PAIN (PS 5-7) 10/10/20 17:00 10/16/20 05:23 Vitamin D (Vitamin D) 5,000 units DAILY PO 10/15/20 11:25 10/17/20 07:42 CHRIS CARPENTER MD October 17, 2020 20:59
[2020-10-17] MEDS: SENNA 8.6 MG TAB (SENOKOT) PO SCH (21:00)
[2020-10-17] MEDS: SIMVASTATIN 20 MG TAB PO SCH (21:34)
[2020-10-17] MEDS: **NOTE PATIENT COMMENT** MISC XX SCH (21:37)
[2020-10-18 05:55] VITALS: BP 149/71
[2020-10-18] MEDS: LEVOTHYROXINE 100MCG TABLET (0.1MG) PO SCH (06:22)
[2020-10-18] MEDS: COMBIVENT RESPIMAT 100-20MCG INHALER 4GM INH SCH ×3 (07:12→19:44)
[2020-10-18] MEDS: REMEDY PHYTOPLEX Z-GUARD PASTE 113GM TUBE (FROM STOREROOM PRODUCT) TOP SCH ×3 (09:00→21:01)
[2020-10-18] MEDS: DOCUSATE SODIUM 100MG CAPSULE PO SCH ×2 (09:00→21:00)
[2020-10-18] MEDS: ENOXAPARIN 40MG/0.4ML SYRINGE (J1650 PER 10MG) SC SCH (09:02)
[2020-10-18] MEDS: ACETAMINOPHEN 500 MG TAB PO SCH ×3 (09:03→20:59)
[2020-10-18] MEDS: VITAMIN D 1,000 INTERNATIONAL UNITS TABLET PO SCH (09:03)
[2020-10-18] MEDS: SERTRALINE 100 MG TAB PO SCH (09:03)
[2020-10-18] MEDS: PANTOPRAZOLE 40MG TAB (PROTONIX) PO SCH (09:03)
[2020-10-18] MEDS: DONEPEZIL 5 MG TAB PO SCH ×2 (09:03→21:00)
[2020-10-18] MEDS: LIDOCAINE 5% (LIDODERM) PATCH TD SCH (09:04)
[2020-10-18] MEDS: atenoloL 25 MG TAB PO SCH (09:04)
[2020-10-18] MEDS: ANUSOL HC CREAM 30GM TOP SCH ×2 (09:05→21:00)
[2020-10-18] MEDS: metFORMIN XR 500MG TAB *GLUCOPHAGE XR PO SCH (17:08)
--- NOTE | 2020-10-18 18:02 | IPNPDOC ---
PM&R Progress Note DATE OF SERVICE: October 18, 2020 [employer] Progress Note Subjective: Patient reporting she is feeling good and that her left wrist is less painful and no longer numb or tingling. REVIEW OF SYSTEMS: The following is a completed review of systems and has been reviewed. Review of systems otherwise unremarkable. PAIN: Patient self reports left wrist pain EYES: No recent vision changes EARS, NOSE, & THROAT: No throat pain, or dysphagia, or rhinorrhea CARDIOVASCULAR: Denies chest pain or palpitations PULMONARY: Denies shortness of breath GASTROINTESTINAL: Denies constipation/diarrhea GENITOURINARY: denies dysuria MUSCULOSKELETAL: left wrist pain and right pelvic fracture NEUROLOGICAL:+left hand paresthesias HEMATOLOGICAL: denies easy bruising SKIN: denies rash PSYCHIATRIC: Unremarkable All other review of systems found to be negative. PHYSICAL EXAMINATION: VITAL SIGNS: Please see below. GENERAL: Pleasant and cooperative. No acute distress. HEENT: PERRL. Extraocular movements intact. Clear conjunctiva CARDIOVASCULAR: Regular rate and rhythm. No murmurs, rubs, or gallops LUNGS: Clear to auscultation bilaterally. No wheezes. No rhonchi ABDOMEN: Soft, nontender, nondistended. Positive bowel sounds. Normal active bowel sounds NEUROLOGICAL: Alert and oriented times three. Cranial nerves II through XII grossly intact. Sensation grossly intact in all 4limbs, except decreased to light touch left hand D1-D4 (improving) EXTREMITIES: 5\\5 strength right l upper extremity 5/5 left elbow flexion/extension, 4/5 wrsit extension/welder/installer/finger abduction (secondary to pain). 4+\\5 strength right lower extremity. right axilla- no lymphadenopathy or mass left wrist- +Tinel's of median nerve, +TTP 1st CMC joint, no swelling, minimal ecchymosis of thenar eminence -radial pulse strong, fingers warm and well perfused ASSESSMENT:79-year-old F with past medical history of DM, hypothyroidism who presents status post fall with multiple right pubic rami fracture and left wrist contusion PLAN: 1. REhab- PT/OT advance mobility and ADLs, strengthen/stretch/maintain ROM all 4 limbs, balance training 2. Ortho s/p fall with multiple right pubic rami fractures, WBAT -patient also with left wrist contusion with paresthesias consistent with median nerve distribution- MRI showing "acute, complete, essentially nondisplaced, transverse fracture extending obliquely through the mid capitate body" discussed with Dr. 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 CArdaic- hx of HTn c/u BP Meds -HLD- c/u statin and Lopid 4. Resp- monitor for infection- current smoker, c/u Combivent 5. Neuro- hx of dementia on donepezil 6. Endo- hx of hypothyroidism c/u synthroid 7. Psych- anxiety/depression c/u zoloft 8. Heme- anemia 9. Pain- tylenol and tramadol prn- -lidoderm path to right axilla- pectoral muscle strain- improving 10. GI ppx- protonix 11. DVT ppx- lovenox 12. DIspo- TBD Allergies Coded Allergies: No Known Allergies (Unverified , 08/01/20) Vital Signs Vital Signs Date Time Temp Pulse Resp B/P (MAP) Pulse Ox O2 Delivery O2 Flow Rate FiO2 10/18/20 09:04 69 138/64 10/18/20 05:55 96.8 18 99 Room Air Laboratory Data Labs 24H Laboratory Tests 2 10/18/20 16:46: Bedside Glucose (Misc Panel) 171H Current Medications Current Medications Current Medications Medications (Trade) Dose Ordered Sig/Nandini Route PRN Reason Start Time Stop Time Status Last Admin Dose Admin Acetaminophen (Tylenol Tab) 1,000 mg TID PO 10/10/20 21:00 10/10/20 18:51 DC Acetaminophen (Tylenol Tab) 1,000 mg TID PO 10/10/20 21:00 10/18/20 17:08 Albuterol/ Ipratropium (Combivent Respimat 100-20mcg) 1 puff RTID INH 10/13/20 08:00 10/17/20 13:34 Atenolol (Tenormin) 25 mg DAILY PO 10/18/20 09:00 10/18/20 09:04 Atenolol (Tenormin) 50 mg DAILY PO 10/11/20 09:00 5/5/21 14:25 DC 10/17/20 07:43 Bisacodyl (Dulcolax Suppository) 10 mg DAILYPRN PRN SD CONSTIPATION 10/10/20 17:00 Dextrose (Dextrose 50%) 25 ml ASDIRECTED PRN IV SEE LABEL COMMENTS 10/10/20 17:00 Docusate Sodium (Colace) 100 mg BID PO 10/10/20 21:00 10/16/20 20:37 Donepezil HCl (AriCEPT) 10 mg BID PO 10/10/20 21:00 10/18/20 09:03 Enoxaparin Sodium (Lovenox) 40 mg DAILY SC 10/11/20 09:00 10/18/20 09:02 Gemfibrozil (Lopid) 600 mg BID@0730,1730 PO 10/10/20 17:30 10/18/20 17:08 Glucagon (Glucagon) 1 mg ASDIRECTED PRN SC SEE LABEL COMMENTS 10/10/20 17:00 Glucose (Glucose) 16 GM ASDIRECTED PRN PO SEE LABEL COMMENTS 10/10/20 17:00 Hydrocortisone (Proctosol Hc) left thenar eimine... BID TOP 10/12/20 09:00 10/18/20 09:05 Insulin Human Lispro (HumaLOG INSULIN) SEE PROTOCOL TABLE AC SC 10/11/20 07:30 10/15/20 16:08 DC 10/13/20 12:44 Insulin Human Lispro (HumaLOG INSULIN) SEE PROTOCOL TABLE QHS SC 10/10/20 21:00 10/15/20 16:08 DC Levothyroxine Sodium (Synthroid) 100 mcg DAILY@06 PO 10/11/20 06:00 10/18/20 06:22 Lidocaine (Lidoderm Patch) 1 patch DAILY TD 10/11/20 09:00 10/12/20 07:56 DC 10/11/20 13:21 Lidocaine (Lidoderm Patch) 1 patch DAILY TD 10/16/20 09:00 10/18/20 09:04 Metformin HCl (Glucophage Xr) 500 mg DAILY@18 PO 10/16/20 18:00 10/18/20 17:08 Non-Formulary Medication ( See Comment Field Below ) REMOVE LIDODERM PATCH DAILY@21 XX 10/11/20 21:00 10/12/20 07:56 DC 10/11/20 20:42 Non-Formulary Medication ( See Comment Field Below ) REMOVE LIDODERM PATCH DAILY@ XX 10/16/20 21:00 10/17/20 21:37 Pantoprazole Sodium (Protonix) 40 mg DAILY PO 10/11/20 09:00 10/18/20 09:03 Senna (Senokot) 1 tab QHS PO 10/10/20 21:00 10/16/20 20:37 Sertraline HCl (Zoloft) 100 mg DAILY PO 10/11/20 09:00 10/18/20 09:03 Simvastatin (Zocor) 60 mg QHS PO 10/10/20 21:00 10/17/20 21:34 Tramadol HCl (Ultram) 50 mg Q4HP PRN PO MODERATE PAIN (PS 5-7) 10/10/20 17:00 10/16/20 05:23 Vitamin D (Vitamin D) 5,000 units DAILY PO 10/15/20 11:25 10/18/20 09:03 CHRIS CARPENTER MD October 18, 2020 18:02
[2020-10-18 20:17] VITALS: BP 134/63
[2020-10-18] MEDS: SIMVASTATIN 20 MG TAB PO SCH (20:59)
[2020-10-18] MEDS: SENNA 8.6 MG TAB (SENOKOT) PO SCH (21:00)
[2020-10-18] MEDS: **NOTE PATIENT COMMENT** MISC XX SCH (21:01)
[2020-10-19] MEDS: LEVOTHYROXINE 100MCG TABLET (0.1MG) PO SCH (05:37)
[2020-10-19 06:05] VITALS: BP 142/65
[2020-10-19] MEDS: COMBIVENT RESPIMAT 100-20MCG INHALER 4GM INH SCH ×3 (07:48→20:00)
[2020-10-19] MEDS: VITAMIN D 1,000 INTERNATIONAL UNITS TABLET PO SCH (08:25)
[2020-10-19] MEDS: ACETAMINOPHEN 500 MG TAB PO SCH ×3 (08:26→21:30)
[2020-10-19] MEDS: LIDOCAINE 5% (LIDODERM) PATCH TD SCH (08:26)
[2020-10-19] MEDS: DONEPEZIL 5 MG TAB PO SCH ×2 (08:27→21:31)
[2020-10-19] MEDS: PANTOPRAZOLE 40MG TAB (PROTONIX) PO SCH (08:27)
[2020-10-19] MEDS: SERTRALINE 100 MG TAB PO SCH (08:27)
[2020-10-19] MEDS: atenoloL 25 MG TAB PO SCH (08:27)
[2020-10-19] MEDS: ENOXAPARIN 40MG/0.4ML SYRINGE (J1650 PER 10MG) SC SCH (08:27)
[2020-10-19] MEDS: DOCUSATE SODIUM 100MG CAPSULE PO SCH ×2 (08:28→21:30)
[2020-10-19] MEDS: REMEDY PHYTOPLEX Z-GUARD PASTE 113GM TUBE (FROM STOREROOM PRODUCT) TOP SCH ×3 (08:28→21:00)
[2020-10-19] MEDS: ANUSOL HC CREAM 30GM TOP SCH ×2 (08:29→21:31)
[2020-10-19 09:36] LABS: BASO # 0.1 10^3/uL (0.0-0.2); BASO % 0.8 % (0.0-1.0); EOS # 0.1 10^3/uL (0.0-0.5); EOS % 2.2 % (0.0-3.0); HEMATOCRIT 33.6 % (36.0-47.0); HEMOGLOBIN 10.3 g/dl (12.0-15.5); LYMPH # 1.2 10^3/uL (1.5-5.0); LYMPH % 19.4 % (24.0-44.0); MEAN CORPUSCULAR HEMOGLOBIN 24.8 pg (27.0-33.0); MEAN CORPUSCULAR HGB CONC 30.7 g/dl (32.0-36.5); MONO # 0.3 10^3/uL (0.0-0.8); MONO % 5.4 % (2.0-8.0); NEUTROPHILS # 4.5 10^3/uL (1.5-8.5); NEUTROPHILS % 71.1 % (36.0-66.0); PLATELET COUNT, AUTOMATED 177 10^3/uL (150-450); RED BLOOD COUNT 4.15 10^6/uL (4.00-5.40); WHITE BLOOD COUNT 6.3 10^3/uL (4.0-10.0)
[2020-10-19 09:51] LABS: BLOOD UREA NITROGEN 20 MG/DL (7-18); CALCIUM LEVEL 8.8 MG/DL (8.8-10.2); CARBON DIOXIDE LEVEL 23 MEQ/L (21-32); CHLORIDE LEVEL 108 MEQ/L (98-107); CREATININE FOR GFR 0.66 MG/DL (0.55-1.30); GLOMERULAR FILTRATION RATE > 60.0 (>39); GLUCOSE, FASTING 217 MG/DL (70-100); POTASSIUM SERUM 4.1 MEQ/L (3.5-5.1); SODIUM LEVEL 140 MEQ/L (136-145)
[2020-10-19 14:00] VITALS: BP 141/63
[2020-10-19] MEDS: metFORMIN XR 500MG TAB *GLUCOPHAGE XR PO SCH (17:41)
[2020-10-19 20:00] VITALS: BP 137/60
[2020-10-19] MEDS: **NOTE PATIENT COMMENT** MISC XX SCH (21:00)
[2020-10-19] MEDS: SIMVASTATIN 20 MG TAB PO SCH (21:30)
[2020-10-19] MEDS: SENNA 8.6 MG TAB (SENOKOT) PO SCH (21:31)
[2020-10-20] MEDS: LEVOTHYROXINE 100MCG TABLET (0.1MG) PO SCH (05:37)
[2020-10-20 05:43] VITALS: BP 169/77
[2020-10-20] MEDS: COMBIVENT RESPIMAT 100-20MCG INHALER 4GM INH SCH ×3 (08:00→20:00)
[2020-10-20] MEDS: VITAMIN D 1,000 INTERNATIONAL UNITS TABLET PO SCH (08:22)
[2020-10-20] MEDS: SERTRALINE 100 MG TAB PO SCH (08:22)
[2020-10-20] MEDS: PANTOPRAZOLE 40MG TAB (PROTONIX) PO SCH (08:22)
[2020-10-20] MEDS: ACETAMINOPHEN 500 MG TAB PO SCH ×3 (08:22→20:17)
[2020-10-20] MEDS: DOCUSATE SODIUM 100MG CAPSULE PO SCH ×2 (08:22→20:16)
[2020-10-20] MEDS: DONEPEZIL 5 MG TAB PO SCH ×2 (08:23→20:16)
[2020-10-20] MEDS: atenoloL 25 MG TAB PO SCH (08:23)
[2020-10-20] MEDS: ENOXAPARIN 40MG/0.4ML SYRINGE (J1650 PER 10MG) SC SCH (08:23)
[2020-10-20] MEDS: ANUSOL HC CREAM 30GM TOP SCH ×2 (08:23→20:17)
[2020-10-20] MEDS: LIDOCAINE 5% (LIDODERM) PATCH TD SCH (08:25)
[2020-10-20] MEDS: REMEDY PHYTOPLEX Z-GUARD PASTE 113GM TUBE (FROM STOREROOM PRODUCT) TOP SCH ×3 (08:26→20:17)
[2020-10-20 11:45] VITALS: BP 139/65
[2020-10-20] MEDS: amLODIPine 5 MG TAB PO SCH (11:52)
[2020-10-20 14:00] VITALS: BP 131/61
[2020-10-20] MEDS: metFORMIN XR 500MG TAB *GLUCOPHAGE XR PO SCH (17:01)
[2020-10-20 20:00] VITALS: BP 118/55
[2020-10-20] MEDS: SENNA 8.6 MG TAB (SENOKOT) PO SCH (20:16)
[2020-10-20] MEDS: SIMVASTATIN 20 MG TAB PO SCH (20:16)
[2020-10-20] MEDS: **NOTE PATIENT COMMENT** MISC XX SCH (20:17)
[2020-10-21 05:27] VITALS: BP 132/61
[2020-10-21] MEDS: LEVOTHYROXINE 100MCG TABLET (0.1MG) PO SCH (05:37)
[2020-10-21] MEDS: DOCUSATE SODIUM 100MG CAPSULE PO SCH ×2 (07:47→20:20)
[2020-10-21] MEDS: atenoloL 25 MG TAB PO SCH (07:48)
[2020-10-21] MEDS: DONEPEZIL 5 MG TAB PO SCH ×2 (07:48→20:20)
[2020-10-21] MEDS: PANTOPRAZOLE 40MG TAB (PROTONIX) PO SCH (07:48)
[2020-10-21] MEDS: amLODIPine 5 MG TAB PO SCH (07:48)
[2020-10-21] MEDS: VITAMIN D 1,000 INTERNATIONAL UNITS TABLET PO SCH (07:48)
[2020-10-21] MEDS: ANUSOL HC CREAM 30GM TOP SCH ×2 (07:49→20:21)
[2020-10-21] MEDS: SERTRALINE 100 MG TAB PO SCH (07:49)
[2020-10-21] MEDS: LIDOCAINE 5% (LIDODERM) PATCH TD SCH (07:49)
[2020-10-21] MEDS: ACETAMINOPHEN 500 MG TAB PO SCH ×3 (07:49→20:21)
[2020-10-21] MEDS: ENOXAPARIN 40MG/0.4ML SYRINGE (J1650 PER 10MG) SC SCH (07:50)
[2020-10-21] MEDS: REMEDY PHYTOPLEX Z-GUARD PASTE 113GM TUBE (FROM STOREROOM PRODUCT) TOP SCH ×3 (07:50→20:21)
[2020-10-21] MEDS: COMBIVENT RESPIMAT 100-20MCG INHALER 4GM INH SCH ×3 (08:00→18:17)
[2020-10-21 14:00] VITALS: BP 149/67
[2020-10-21] MEDS: metFORMIN XR 500MG TAB *GLUCOPHAGE XR PO SCH (18:00)
[2020-10-21] MEDS: SENNA 8.6 MG TAB (SENOKOT) PO SCH (20:20)
[2020-10-21] MEDS: SIMVASTATIN 20 MG TAB PO SCH (20:20)
[2020-10-21] MEDS: **NOTE PATIENT COMMENT** MISC XX SCH (20:22)
[2020-10-21 20:30] VITALS: BP 144/61
[2020-10-22] MEDS: LEVOTHYROXINE 100MCG TABLET (0.1MG) PO SCH (05:38)
[2020-10-22 06:38] VITALS: BP 147/67
[2020-10-22] MEDS: COMBIVENT RESPIMAT 100-20MCG INHALER 4GM INH SCH ×3 (07:23→20:00)
[2020-10-22 07:53] LABS: BASO % 0.7 % (0.0-1.0); EOS # 0.1 10^3/uL (0.0-0.5); EOS % 2.2 % (0.0-3.0); HEMATOCRIT 34.6 % (36.0-47.0); HEMOGLOBIN 10.6 g/dl (12.0-15.5); LYMPH # 1.1 10^3/uL (1.5-5.0); LYMPH % 19.3 % (24.0-44.0); MEAN CORPUSCULAR HEMOGLOBIN 24.7 pg (27.0-33.0); MEAN CORPUSCULAR HGB CONC 30.6 g/dl (32.0-36.5); MEAN CORPUSCULAR VOLUME 80.5 fl (80.0-96.0); MONO # 0.3 10^3/uL (0.0-0.8); NEUTROPHILS # 3.9 10^3/uL (1.5-8.5); NEUTROPHILS % 70.9 % (36.0-66.0); PLATELET COUNT, AUTOMATED 169 10^3/uL (150-450); WHITE BLOOD COUNT 5.5 10^3/uL (4.0-10.0)
[2020-10-22] MEDS: PANTOPRAZOLE 40MG TAB (PROTONIX) PO SCH (08:00)
[2020-10-22] MEDS: DONEPEZIL 5 MG TAB PO SCH ×2 (08:00→21:19)
[2020-10-22] MEDS: ACETAMINOPHEN 500 MG TAB PO SCH ×3 (08:00→21:19)
[2020-10-22] MEDS: VITAMIN D 1,000 INTERNATIONAL UNITS TABLET PO SCH (08:00)
[2020-10-22] MEDS: SERTRALINE 100 MG TAB PO SCH (08:00)
[2020-10-22] MEDS: ENOXAPARIN 40MG/0.4ML SYRINGE (J1650 PER 10MG) SC SCH (08:01)
[2020-10-22] MEDS: atenoloL 25 MG TAB PO SCH (08:01)
[2020-10-22] MEDS: LIDOCAINE 5% (LIDODERM) PATCH TD SCH (08:01)
[2020-10-22] MEDS: amLODIPine 5 MG TAB PO SCH (08:01)
[2020-10-22] MEDS: ANUSOL HC CREAM 30GM TOP SCH ×2 (08:02→21:20)
[2020-10-22] MEDS: DOCUSATE SODIUM 100MG CAPSULE PO SCH ×2 (08:03→21:19)
[2020-10-22] MEDS: REMEDY PHYTOPLEX Z-GUARD PASTE 113GM TUBE (FROM STOREROOM PRODUCT) TOP SCH ×3 (08:03→21:00)
[2020-10-22 08:08] LABS: BLOOD UREA NITROGEN 21 MG/DL (7-18); CALCIUM LEVEL 9.8 MG/DL (8.8-10.2); CARBON DIOXIDE LEVEL 26 MEQ/L (21-32); CHLORIDE LEVEL 106 MEQ/L (98-107); CREATININE FOR GFR 0.67 MG/DL (0.55-1.30); GLOMERULAR FILTRATION RATE > 60.0 (>39); GLUCOSE, FASTING 153 MG/DL (70-100); POTASSIUM SERUM 4.3 MEQ/L (3.5-5.1); SODIUM LEVEL 139 MEQ/L (136-145)
[2020-10-22] MEDS ORDERED: SYNT100T PO (10:58)
[2020-10-22] MEDS ORDERED: ZOLO100T PO (10:58)
[2020-10-22] MEDS ORDERED: DONE10TA90 PO (10:58)
[2020-10-22] MEDS ORDERED: LOPI600T PO (10:58)
[2020-10-22] MEDS ORDERED: AMLO1TAB24 PO (10:58)
[2020-10-22] MEDS ORDERED: ATEN25TA PO (10:58)
[2020-10-22] MEDS ORDERED: VITAD1000T PO (10:58)
[2020-10-22] MEDS ORDERED: SIMV40TA20 PO (10:58)
[2020-10-22 14:00] VITALS: BP 128/61
[2020-10-22] MEDS: metFORMIN XR 500MG TAB *GLUCOPHAGE XR PO SCH (17:16)
[2020-10-22 20:30] VITALS: BP 144/62
[2020-10-22] MEDS: SENNA 8.6 MG TAB (SENOKOT) PO SCH (21:18)
[2020-10-22] MEDS: SIMVASTATIN 20 MG TAB PO SCH (21:19)
[2020-10-22] MEDS: **NOTE PATIENT COMMENT** MISC XX SCH (21:21)
--- NOTE | 2020-10-22 23:19 | IPNPDOC ---
PM&R Progress Note DATE OF SERVICE: October 19, 2020 [employer] Progress Note Subjective: Patient reporting she is getting stronger and believes she will be ready to go home next week. REVIEW OF SYSTEMS: The following is a completed review of systems and has been reviewed. Review of systems otherwise unremarkable. PAIN: Patient self reports left wrist pain EYES: No recent vision changes EARS, NOSE, & THROAT: No throat pain, or dysphagia, or rhinorrhea CARDIOVASCULAR: Denies chest pain or palpitations PULMONARY: Denies shortness of breath GASTROINTESTINAL: Denies constipation/diarrhea GENITOURINARY: denies dysuria MUSCULOSKELETAL: left wrist pain and right pelvic fracture NEUROLOGICAL:+left hand paresthesias (improving) HEMATOLOGICAL: denies easy bruising SKIN: denies rash PSYCHIATRIC: Unremarkable All other review of systems found to be negative. PHYSICAL EXAMINATION: VITAL SIGNS: Please see below. GENERAL: Pleasant and cooperative. No acute distress. HEENT: PERRL. Extraocular movements intact. Clear conjunctiva CARDIOVASCULAR: Regular rate and rhythm. No murmurs, rubs, or gallops LUNGS: Clear to auscultation bilaterally. No wheezes. No rhonchi ABDOMEN: Soft, nontender, nondistended. Positive bowel sounds. Normal active b owel sounds NEUROLOGICAL: Alert and oriented times three. Cranial nerves II through XII grossly intact. Sensation grossly intact in all 4limbs, except decreased to light touch left hand D1-D4 (improving) EXTREMITIES: 5\\5 strength right l upper extremity 5/5 left elbow flexion/extension, 4/5 wrsit extension/oral surgery assistant/finger abduction (secondary to pain). 4+\\5 strength right lower extremity. right axilla- no lymphadenopathy or mass left wrist- +Tinel's of median nerve, +TTP 1st CMC joint, no swelling, minimal ecchymosis of thenar eminence -radial pulse strong, fingers warm and well perfused ASSESSMENT:79-year-old F with past medical history of DM, hypothyroidism who presents status post fall with multiple right pubic rami fracture and left wrist contusion PLAN: 1. REhab- PT/OT advance mobility and ADLs, strengthen/stretch/maintain ROM all 4 limbs, balance training 2. Ortho s/p fall with multiple right pubic rami fractures, WBAT -patient also with left wrist contusion with paresthesias consistent with median nerve distribution- MRI showing "acute, complete, essentially nondisplaced, transverse fracture extending obliquely through the mid capitate body" discussed with Dr. 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 CArdaic- hx of HTn c/u BP Meds, will add amlodpine -HLD- c/u statin and Lopid 4. Resp- monitor for infection- current smoker, c/u Combivent 5. Neuro- hx of dementia on donepezil 6. Endo- hx of hypothyroidism c/u synthroid 7. Psych- anxiety/depression c/u zoloft 8. Heme- anemia 9. Pain- tylenol and tramadol prn- -lidoderm path to right axilla- pectoral muscle strain- improving 10. GI ppx- protonix 11. DVT ppx- lovenox 12. DIspo- 10-23-20 to home, progressing towards goals Allergies Coded Allergies: No Known Allergies (Unverified , 08/01/20) Vital Signs Vital Signs Date Time Temp Pulse Resp B/P (MAP) Pulse Ox O2 Delivery O2 Flow Rate FiO2 10/22/20 20:30 97.5 61 18 144/62 (89) 95 Room Air Laboratory Data CBC/BMP Laboratory Tests 10/22/20 07:06 Labs 24H Laboratory Tests 2 10/22/20 07:06: Immature Granulocyte % (Auto) 0.9, Neutrophils (%) (Auto) 70.9H, Lymphocytes (%) (Auto) 19.3L, Monocytes (%) (Auto) 6.0, Eosinophils (%) (Auto) 2.2, Basophils (%) (Auto) 0.7, Neutrophils # (Auto) 3.9, Lymphocytes # (Auto) 1.1L, Monocytes # (Auto) 0.3, Eosinophils # (Auto) 0.1, Basophils # (Auto) 0.0, Nucleated Red Blood Cells % (auto) 0.0, Anion Gap 7L, Glomerular Filtration Rate > 60.0, Calcium Level 9.8 10/22/20 18:04: Bedside Glucose (Misc Panel) 139H Current Medications Current Medications Current Medications Medications (Trade) Dose Ordered Sig/Nandini Route PRN Reason Start Time Stop Time Status Last Admin Dose Admin Acetaminophen (Tylenol Tab) 1,000 mg TID PO 10/10/20 21:00 10/10/20 18:51 DC Acetaminophen (Tylenol Tab) 1,000 mg TID PO 10/10/20 21:00 10/22/20 21:19 Albuterol/ Ipratropium (Combivent Respimat 100-20mcg) 1 puff RTID INH 10/13/20 08:00 10/17/20 13:34 Amlodipine Besylate (Norvasc) 5 mg DAILY PO 10/20/20 11:25 10/22/20 08:01 Atenolol (Tenormin) 25 mg DAILY PO 10/18/20 09:00 10/22/20 08:01 Atenolol (Tenormin) 50 mg DAILY PO 10/11/20 09:00 10/17/20 14:25 DC 10/17/20 07:43 Bisacodyl (Dulcolax Suppository) 10 mg DAILYPRN PRN OK CONSTIPATION 10/10/20 17:00 Dextrose (Dextrose 50%) 25 ml ASDIRECTED PRN IV SEE LABEL COMMENTS 10/10/20 17:00 Docusate Sodium (Colace) 100 mg BID PO 10/10/20 21:00 10/22/20 21:19 Donepezil HCl (AriCEPT) 10 mg BID PO 10/10/20 21:00 10/22/20 21:19 Enoxaparin Sodium (Lovenox) 40 mg DAILY SC 10/11/20 09:00 10/22/20 08:01 Gemfibrozil (Lopid) 600 mg BID@0730,1730 PO 10/10/20 17:30 10/22/20 17:15 Glucagon (Glucagon) 1 mg ASDIRECTED PRN SC SEE LABEL COMMENTS 10/10/20 17:00 Glucose (Glucose) 16 GM ASDIRECTED PRN PO SEE LABEL COMMENTS 10/10/20 17:00 Hydrocortisone (Proctosol Hc) left thenar eimine... BID TOP 10/12/20 09:00 10/22/20 21:20 Insulin Human Lispro (HumaLOG INSULIN) SEE PROTOCOL TABLE AC SC 10/11/20 07:30 5/3/21 16:08 DC 10/13/20 12:44 Insulin Human Lispro (HumaLOG INSULIN) SEE PROTOCOL TABLE QHS SC 10/10/20 21:00 10/15/20 16:08 DC Levothyroxine Sodium (Synthroid) 100 mcg DAILY@06 PO 10/11/20 06:00 10/22/20 05:38 Lidocaine (Lidoderm Patch) 1 patch DAILY TD 10/11/20 09:00 10/12/20 07:56 DC 10/11/20 13:21 Lidocaine (Lidoderm Patch) 1 patch DAILY TD 10/16/20 09:00 10/22/20 08:01 Metformin HCl (Glucophage Xr) 500 mg DAILY@18 PO 10/16/20 18:00 10/22/20 17:16 Non-Formulary Medication ( See Comment Field Below ) REMOVE LIDODERM PATCH DAILY@21 XX 10/11/20 21:00 10/12/20 07:56 DC 10/11/20 20:42 Non-Formulary Medication ( See Comment Field Below ) REMOVE LIDODERM PATCH DAILY@21 XX 10/16/20 21:00 10/22/20 21:21 Pantoprazole Sodium (Protonix) 40 mg DAILY PO 10/11/20 09:00 10/22/20 08:00 Senna (Senokot) 1 tab QHS PO 10/10/20 21:00 10/22/20 21:18 Sertraline HCl (Zoloft) 100 mg DAILY PO 10/11/20 09:00 10/22/20 08:00 Simvastatin (Zocor) 60 mg QHS PO 10/10/20 21:00 10/22/20 21:19 Tramadol HCl (Ultram) 50 mg Q4HP PRN PO MODERATE PAIN (PS 5-7) 10/10/20 17:00 10/22/20 13:07 DC 10/16/20 05:23 Vitamin D (Vitamin D) 5,000 units DAILY PO 10/15/20 11:25 10/22/20 08:00 CHRIS CARPENTER MD October 22, 2020 23:19
--- NOTE | 2020-10-22 23:20 | IPNPDOC ---
PM&R Progress Note DATE OF SERVICE: October 22, 2020 Drive Thru Order Taker Progress Note Subjective: Patient reporting she feels good and is ready to go home tomorrow. No new complaints. REVIEW OF SYSTEMS: The following is a completed review of systems and has been reviewed. Review of systems otherwise unremarkable. PAIN: Patient self reports left wrist pain EYES: No recent vision changes EARS, NOSE, & THROAT: No throat pain, or dysphagia, or rhinorrhea CARDIOVASCULAR: Denies chest pain or palpitations PULMONARY: Denies shortness of breath GASTROINTESTINAL: Denies constipation/diarrhea GENITOURINARY: denies dysuria MUSCULOSKELETAL: left wrist pain and right pelvic fracture NEUROLOGICAL:+left hand paresthesias (improving) HEMATOLOGICAL: denies easy bruising SKIN: denies rash PSYCHIATRIC: Unremarkable All other review of systems found to be negative. PHYSICAL EXAMINATION: VITAL SIGNS: Please see below. GENERAL: Pleasant and cooperative. No acute distress. HEENT: PERRL. Extraocular movements intact. Clear conjunctiva CARDIOVASCULAR: Regular rate and rhythm. No murmurs, rubs, or gallops LUNGS: Clear to auscultation bilaterally. No wheezes. No rhonchi ABDOMEN: Soft, nontender, nondistended. Positive bowel sounds. Normal active bowel sounds NEUROLOGICAL: Alert and oriented times three. Cranial nerves II through XII grossly intact. 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 4+\\5 strength right lower extremity. right axilla- no lymphadenopathy or mass left wrist- +Tinel's of median nerve, +TTP 1st CMC joint, no swelling, minimal ecchymosis of thenar eminence -radial pulse strong, fingers warm and well perfused ASSESSMENT:79-year-old F with past medical history of DM, hypothyroidism who presents status post fall with multiple right pubic rami fracture and left wrist contusion PLAN: 1. REhab- PT/OT advance mobility and ADLs, strengthen/stretch/maintain ROM all 4 limbs, balance training 2. Ortho s/p fall with multiple right pubic rami fractures, WBAT -patient also with left wrist contusion with paresthesias consistent with median nerve distribution- MRI showing "acute, complete, essentially nondisplaced, transverse fracture extending obliquely through the mid capitate body" discussed with Dr. 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 CArdaic- hx of HTn c/u atenolol and amlodpine -HLD- c/u statin and Lopid 4. Resp- monitor for infection- current smoker, c/u Combivent 5. Neuro- hx of dementia on donepezil 6. Endo- hx of hypothyroidism c/u synthroid 7. Psych- anxiety/depression c/u zoloft 8. Heme- anemia 9. Pain- tylenol and tramadol prn- -lidoderm path to right axilla- pectoral muscle strain- improving 10. GI ppx- protonix 11. DVT ppx- lovenox 12. DIspo- 10-23-20 to home, progressing towards goals Allergies Coded Allergies: No Known Allergies (Unverified , 08/01/20) Vital Signs Vital Signs Date Time Temp Pulse Resp B/P (MAP) Pulse Ox O2 Delivery O2 Flow Rate FiO2 10/22/20 20:30 97.5 61 18 144/62 (89) 95 Room Air Laboratory Data CBC/BMP Laboratory Tests 10/22/20 07:06 Labs 24H Laboratory Tests 2 10/22/20 07:06: Immature Granulocyte % (Auto) 0.9, Neutrophils (%) (Auto) 70.9H, Lymphocytes (%) (Auto) 19.3L, Monocytes (%) (Auto) 6.0, Eosinophils (%) (Auto) 2.2, Basophils (%) (Auto) 0.7, Neutrophils # (Auto) 3.9, Lymphocytes # (Auto) 1.1L, Monocytes # (Auto) 0.3, Eosinophils # (Auto) 0.1, Basophils # (Auto) 0.0, Nucleated Red Blood Cells % (auto) 0.0, Anion Gap 7L, Glomerular Filtration Rate > 60.0, Calcium Level 9.8 10/22/20 18:04: Bedside Glucose (Misc Panel) 139H Current Medications Current Medications Current Medications Medications (Trade) Dose Ordered Sig/Nandini Route PRN Reason Start Time Stop Time Status Last Admin Dose Admin Acetaminophen (Tylenol Tab) 1,000 mg TID PO 10/10/20 21:00 10/10/20 18:51 DC Acetaminophen (Tylenol Tab) 1,000 mg TID PO 10/10/20 21:00 10/22/20 21:19 Albuterol/ Ipratropium (Combivent Respimat 100-20mcg) 1 puff RTID INH 10/13/20 08:00 10/17/20 13:34 Amlodipine Besylate (Norvasc) 5 mg DAILY PO 10/20/20 11:25 10/22/20 08:01 Atenolol (Tenormin) 25 mg DAILY PO 10/18/20 09:00 10/22/20 08:01 Atenolol (Tenormin) 50 mg DAILY PO 10/11/20 09:00 10/17/20 14:25 DC 10/17/20 07:43 Bisacodyl (Dulcolax Suppository) 10 mg DAILYPRN PRN [place] CONSTIPATION 10/10/20 17:00 Dextrose (Dextrose 50%) 25 ml ASDIRECTED PRN IV SEE LABEL COMMENTS 10/10/20 17:00 Docusate Sodium (Colace) 100 mg BID PO 10/10/20 21:00 10/22/20 21:19 Donepezil HCl (AriCEPT) 10 mg BID PO 10/10/20 21:00 10/22/20 21:19 Enoxaparin Sodium (Lovenox) 40 mg DAILY SC 10/11/20 09:00 10/22/20 08:01 Gemfibrozil (Lopid) 600 mg BID@0730,1730 PO 10/10/20 17:30 10/22/20 17:15 Glucagon (Glucagon) 1 mg ASDIRECTED PRN SC SEE LABEL COMMENTS 10/10/20 17:00 Glucose (Glucose) 16 GM ASDIRECTED PRN PO SEE LABEL COMMENTS 10/10/20 17:00 Hydrocortisone (Proctosol Hc) left thenar eimine... BID TOP 10/12/20 09:00 10/22/20 21:20 Insulin Human Lispro (HumaLOG INSULIN) SEE PROTOCOL TABLE AC SC 10/11/20 07:30 5/21 16:08 DC 10/13/20 12:44 Insulin Human Lispro (HumaLOG INSULIN) SEE PROTOCOL TABLE QHS SC 10/10/20 21:00 10/15/20 16:08 DC Levothyroxine Sodium (Synthroid) 100 mcg DAILY@06 PO 10/11/20 06:00 10/22/20 05:38 Lidocaine (Lidoderm Patch) 1 patch DAILY TD 10/11/20 09:00 10/12/20 07:56 DC 10/11/20 13:21 Lidocaine (Lidoderm Patch) 1 patch DAILY TD 10/16/20 09:00 10/22/20 08:01 Metformin HCl (Glucophage Xr) 500 mg DAILY@18 PO 10/16/20 18:00 10/22/20 17:16 Non-Formulary Medication ( See Comment Field Below ) REMOVE LIDODERM PATCH DAILY@21 XX 10/11/20 21:00 10/12/20 07:56 DC 10/11/20 20:42 Non-Formulary Medication ( See Comment Field Below ) REMOVE LIDODERM PATCH DAILY@21 XX 10/16/20 21:00 10/22/20 21:21 Pantoprazole Sodium (Protonix) 40 mg DAILY PO 10/11/20 09:00 10/22/20 08:00 Senna (Senokot) 1 tab QHS PO 10/10/20 21:00 10/22/20 21:18 Sertraline HCl (Zoloft) 100 mg DAILY PO 10/11/20 09:00 10/22/20 08:00 Simvastatin (Zocor) 60 mg QHS PO 10/10/20 21:00 10/22/20 21:19 Tramadol HCl (Ultram) 50 mg Q4HP PRN PO MODERATE PAIN (PS 5-7) 10/10/20 17:00 10/22/20 13:07 DC 10/16/20 05:23 Vitamin D (Vitamin D) 5,000 units DAILY PO 10/15/20 11:25 10/22/20 08:00 CHRIS CARPENTER MD October 22, 2020 23:20
[2020-10-23] MEDS: LEVOTHYROXINE 100MCG TABLET (0.1MG) PO SCH (05:50)
[2020-10-23 06:00] VITALS: BP 139/64
[2020-10-23] MEDS: COMBIVENT RESPIMAT 100-20MCG INHALER 4GM INH SCH ×2 (08:00→13:22)
[2020-10-23] MEDS: VITAMIN D 1,000 INTERNATIONAL UNITS TABLET PO SCH (08:10)
[2020-10-23] MEDS: SERTRALINE 100 MG TAB PO SCH (08:10)
[2020-10-23 08:11] VITALS: BP 138/68
[2020-10-23] MEDS: amLODIPine 5 MG TAB PO SCH (08:11)
[2020-10-23] MEDS: atenoloL 25 MG TAB PO SCH (08:11)
[2020-10-23] MEDS: DOCUSATE SODIUM 100MG CAPSULE PO SCH (08:11)
[2020-10-23] MEDS: DONEPEZIL 5 MG TAB PO SCH (08:11)
[2020-10-23] MEDS: PANTOPRAZOLE 40MG TAB (PROTONIX) PO SCH (08:11)
[2020-10-23] MEDS: ACETAMINOPHEN 500 MG TAB PO SCH (08:11)
[2020-10-23] MEDS: LIDOCAINE 5% (LIDODERM) PATCH TD SCH (08:12)
[2020-10-23] MEDS: ANUSOL HC CREAM 30GM TOP SCH (08:12)
[2020-10-23] MEDS: REMEDY PHYTOPLEX Z-GUARD PASTE 113GM TUBE (FROM STOREROOM PRODUCT) TOP SCH (08:12)
--- NOTE | 2020-10-23 11:47 | PMRDS ---
NAME: CIPRIANO BISHOP [facility] WT ID#: [id number] JOB: [id number] BRISEIDA: 10/23/2020 ACCT: [id number] DOCTOR: CHRIS CARPENTER MD PMR DISCHARGE SUMMARY DATE OF ADMISSION: 10/10/2020 DATE OF DISCHARGE: 10/23/2020 CHIEF COMPLAINT/DISCHARGE DIAGNOSIS: Right pelvic fracture and left wrist fracture. HISTORY OF PRESENT ILLNESS: A 79-year-old female with past medical history of dementia, diabetes, hypertension, hyperlipidemia, cholelithiasis, hypothyroidism, who presented to [facility] ED on 10/07/2020 with left \\wrist and right hip pain following a mechanical fall. Imaging revealed "subtle nondisplaced somewhat comminuted fracture involving the right pubic tubercle/inferior pubic ramus and very subtle incomplete buckle fracture of the mid right inferior pubic ramus" and wrist imaging did not reveal fracture. She was evaluated by orthopedics, diagnosed with a wrist contusion and provided with a splint. She had weakness, pain and notable anemia with difficulty completing her ADLs and ambulating, and deemed medically appropriate for discharge to ARU on 10/10/2020. PAST MEDICAL HISTORY: As per HPI. HOSPITAL COURSE: Patient was admitted and enrolled in a comprehensive PT/OT program. She received 24-hour nursing supervision and weekly team meetings were held to discuss her progress. Patient, on initial presentation, complained on left wrist pain in addition to paresthesias in the median nerve distribution. MRI was ordered, showing "acute complete essentially nondisplaced transverse fracture extending obliquely through the mid capitate body." Case was discussed with Dr. Jimenez, who said to continue conservative management with splint and to follow-up outpatient. For her carpal tunnel syndrome, she was instructed to keep her wrist in neutral with a splint and was treated with topical steroids with overall improvement. She had mildly elevated blood pressures, for which she was started on Amlodipine. Her diabetes was controlled with Metformin and insulin sliding scale. She made steady gains in therapy and was deemed medically and functionally stable to return home. DISCHARGE MEDICATIONS: As per instructions. FUNCTIONAL HISTORY: On discharge the patient was modified independent for functional transfers and ambulation. Thank you for this referral.
[2020-10-23 14:00] VITALS: BP 130/61
== END 2020-10-23 15:35 | disposition home health service (06) | DRG 561 ==
LOC: M PM&R 18:40
PROVIDERS: ADMIT Physical Medicine & Rehabilitation; ATTEND Physical Medicine & Rehabilitation
DX: S32.591D Other specified fracture of right pubis, subsequent encounter for fracture with routine healing (principal); F03.90 Unspecified dementia, unspecified severity, without behavioral disturbance, psychotic disturbance, mood disturbance, and anxiety; E78.5 Hyperlipidemia, unspecified; I10 Essential (primary) hypertension; E03.9 Hypothyroidism, unspecified; W18.30XD Fall on same level, unspecified, subsequent encounter; Y92.9 Unspecified place or not applicable; Z74.09 Other reduced mobility; Z74.1 Need for assistance with personal care; R20.2 Paresthesia of skin; F32.9 Major depressive disorder, single episode, unspecified; F41.9 Anxiety disorder, unspecified; D64.9 Anemia, unspecified; Z79.84 Long term (current) use of oral hypoglycemic drugs; Z79.899 Other long term (current) drug therapy; E11.9 Type 2 diabetes mellitus without complications